=== PATIENT | male | born 1965 | race African-American/Black ===

== ENCOUNTER 2019-08-19 05:54 | Emergency (ER) | payer MEDICAID, SELFPAY ==
[2019-08-19 05:55] VITALS: BP 163/94; PULSE 86; RESP 16; TEMP 37.2; O2SAT 100; BMI 27.7
--- NOTE | 2019-08-19 06:55 | ED.VIS.DENTA ---
History of Present Illness Chief Complaint: Dental Informant: Patient Onset: Today Context: Gradual Onset Timing: Continuous Narrative: She is a 54-year-old male with history of intermittent dental pain presenting with worsening right lower dental pain. Patient states he has a broken tooth that started hurting him again yesterday. He states he feels that the tooth is loose. He previously was referred to the [facility] where he went but was told that they do not have an residential construction instructor and that they could not treat him there. Patient did not follow-up since then. Patient smokes intermittently. He denies any other complaints. He states he is having hard time chewing and eating. He denies any difficulty opening his mouth or swallowing. He denies any difficulty handling his secretions. Past Medical History - Allergies and Home Meds Allergies/Adverse Reactions: Allergies Penicillins Allergy (Verified 08/19/19 05:58) Rash Primary Care Physician: Damaso Woody [Primary Care Provider] - Past Medical History: - - Depression Surgical History: noncontributory Smoking Status: Current every day smoker Review of Systems General: Denies: Chills, Fever, Sweats Eyes: Denies: Visual changes - bilaterally, Diplopia ENT: Reports: - - Right lower dental pain. Denies: Rhinorrhea, Sore throat Cardiovascular: Denies: Chest pain, Palpitations Respiratory: Denies: Dyspnea, Cough, Dyspnea on exertion Gastrointestinal: Denies: Abdominal pain, Nausea, Vomiting Genitourinary: Denies: Dysuria, Hematuria, Frequency Skin: Denies: Rash, Wounds Neurological: Denies: Headache, Weakness, Numbness Physical Exam Vital Signs/Narrative: Vital Signs Temp Pulse Resp BP Pulse Ox 08/19/19 05:55 99 F 86 16 163/94 H 100 Inital Vital Signs reviewed: Yes General: Well nourished, Well developed Head: Normocephalic, Atraumatic ENT: Moist mucous membranes, No rhinorrhea, TM's clear Mouth/Throat: Normal inspection lips/gums, Normal oral mucosa, No focal abscess, Normal posterior oropharynx, Normal Stensen's duct, Dentral fracture - Broken tooth with a large section missing and only one shard sticking up that is loose on the right lower premolar, no surrounding abscess but associated tenderness to palpation, Filling loss, Widespread dental decay, - - Sublingual mucosa is soft. Negative for: Focal gum swelling, Trismus Neck: Supple, No lymphadenopathy, Nontender, No JVD Cardiovascular: Regular rate, Regular rhythm, No murmurs Respiratory: No distress, CTA bilaterally, Chest nontender Back: Nontender, Normal Inspection Extremities: Nontender, No edema Skin: Normal color, No rash Neurological: Alert, Oriented x3, Cranial nerves II-XII grossly intact, Normal Strength, Normal Sensation Psychological: Normal affect Diagnostic/Tx/Re-eval - Medical Decision Making Patient is evaluated for recurrent dental pain. He does have a broken tooth with very minimal tooth actually remaining that is loose to palpation. Do not think it is amenable to splinting or Cavit at this time. Patient drove here so he is not given any sedating medications in the ER. He is started on clindamycin and Motrin given first dose. Patient is offered a dental block but declines. He is requesting a short course of [place]. Chart review shows that he has previously gotten short courses of these for visit so he is given another prescription. Patient is counseled however that he needs to follow-up with dentist for definitive treatment. He is also counseled to stop smoking. Patient has no airway compromise and a stable for outpatient follow-up. He is given a dental clinic sheet. Patient is counseled on signs and symptoms requiring return to the emergency room. Patient verbalizes agreement and understand this plan. Patient discharged home in stable and improved condition. ED Disposition - Plan for ED Patient: Disposition: Home or Assisted Living Diagnosis: Dentalgia, Broken tooth Instructions: Dental Pain Prescriptions: Clindamycin [Cleocin] 450 mg PO TID 7 Days #63 cap Transmission Status: Pending to [facility] Ibuprofen [Motrin] 800 mg PO TID PRN PRN #20 tab PRN Reason: Pain Or Fever Transmission Status: Pending to [facility] Hydrocodone Bitart/Apap 5-325 [[place] 5MG-325MG] 1 tablet PO Q6H PRN PRN 3 Days #12 tablet PRN Reason: Pain Transmission Status: Sent to [facility] Referrals: Damaso Woody [Primary Care Provider] -
[2019-08-19] MEDS: Ibuprofen 600 MG Tablet PO (07:02)
[2019-08-19] MEDS: Clindamycin HCl 150 MG Capsule 300 MG PO (07:02)
== END 2019-08-19 07:08 | disposition home or self-care (01) ==
PROVIDERS: Emergency Provider Emergency Medicine; PCP Emergency Medicine
DX: S02.5XXA Fracture of tooth (traumatic), initial encounter for closed fracture (principal); X58.XXXA Exposure to other specified factors, initial encounter; Y93.9 Activity, unspecified; Y92.9 Unspecified place or not applicable; F32.9 Major depressive disorder, single episode, unspecified; F17.200 Nicotine dependence, unspecified, uncomplicated
CPT/HCPCS: 99283

== ENCOUNTER 2021-09-16 08:45 | Outpatient (REF) | payer SELFPAY ==
[2021-09-16 08:46] VITALS: BP 149/118; PULSE 111; RESP 20; TEMP 36.6; O2SAT 100; BMI 27.4
--- NOTE | 2021-09-16 09:03 | EKG12_ITS ---
Test Reason : SUICIDAL Blood Pressure : / mmHG Vent. Rate : 093 BPM Atrial Rate : 093 BPM P-R Int : 150 ms QRS Dur : 080 ms QT Int : 366 ms P-R-T Axes : 082 064 049 degrees QTc Int : 455 ms Normal sinus rhythm Nonspecific T wave abnormality Abnormal ECG Confirmed by WILLIAM LEE, ZORAN ([id number]), video news editor ЕКАТЕРИНА CHAU ([id number]) on 09/19/2021 11:09:46 A M Referred By: STEPHANIE Confirmed By:GIOVANI THOMAS MD
--- NOTE | 2021-09-16 09:31 | EDS_ITS ---
HPI History of Present Illness Chief Complaint: Suicidal Narrative Narrative: Patient is here for medical clearance. He has suicidal ideations, he has a history of drug use, he is in correction however he is feeling suicidal and he at some point will be transferred to [facility], he just needs medical clearance at this time he tells me he feels depressed he does not feel well but this has been chronic for over 2 years. He has no fever or chills he has no pain anywhere per se. He does admit to being depressed and suicidal [facility] Medical History (Updated 09/16/21 @ 10:[address] Jett Lao MD) Depression Diabetes Marijuana abuse Home Medications fluoxetine 40 mg PO DAILY 12/10/16 [History Last Taken 05/12/17] ibuprofen 800 mg PO TID PRN PRN #20 tab 08/19/19 [Rx Last Taken Unknown] fluoxetine 20 mg PO DAILY #30 cap 09/16/21 [Rx Last Taken Unknown] metformin 500 mg PO BID #60 tab 09/16/21 [Rx Last Taken Unknown] trazodone 50 mg PO QHS PRN 30 Days #14 tab 09/16/21 [Rx Last Taken Unknown] Allergy/AdvReac Type Severity Reaction Status Date / Time Penicillins Allergy Rash Verified 09/16/21 09:49 Social History Smoking Status: Current every day smoker tobacco type: cigarettes ROS ROS ED ROS Narrative Past medical history: Reviewed Medications: Reviewed Social history: Noncontributory Review of systems: All systems negative except as indicated General: No fever. He does not feel well which is chronic Eyes: No visual changes ENT: No upper airway congestion, normal voice Neck: No neck pain Cardiovascular: No chest pain Respiratory: No shortness of breath or cough Gastrointestinal: No abdominal pain, nausea vomiting or diarrhea Genitourinary: No dysuria Musculoskeletal: Denies myalgias no difficulty with ambulation Skin: No rash Neurological: No memory loss, confusion or any focal weakness Psych: As in HPI Hematologic: No easy bleeding or easy bruising EXAM Physical Exam Narrative Exam Narrative: Physical exam General: Well nourished, Well developed, No Acute Distress Head: Normocephalic, Atraumatic Eyes: Conjunctiva not pale ENT: Moist mucous membranes Neck: Supple, Nontender, No lymphadenopathy Cardiovascular: Slightly tachycardic. Regular. No murmur. Respiratory: No distress, CTA bilaterally Abdomen: Soft, Nontender, Nondistended Back: Nontender, Normal Inspection. Negative for: CVA tenderness Extremities: Nontender, No edema Skin: Normal color, No rash Neurological: Alert, Normal Strength, Normal Sensation Psychological: Normal affect Const Vital Signs: 09/16/21 08:46 Temperature 97.8 F Temperature Source Temporal Pulse Rate 111 H Respiratory Rate 20 H Blood Pressure 149/118 H Blood Pressure Mean 128 Pulse Ox 100 Oxygen Delivery Method Room Air MDM MDM MDM Narrative Medical decision making narrative: Patient has a normal work-up except for his hyperglycemia, however he has been off his Metformin for at least a month. I will refill his prescription as well as his chronic prescriptions otherwise he can be safely discharged back to correction they do have a suicide watch unit at correction and thus I feel comfortable with discharge in police custody. Lab Data Labs: Laboratory Results - last 24 hr 09/16/21 09/16/21 09/16/21 09:30 09:30 09:30 WBC 6.3 RBC 5.11 Hgb 17.2 H Hct 48.4 MCV 94.7 H MCH 33.7 H MCHC 35.5 RDW Std Deviation 53.1 H RDW Coeff of [place] 15.0 H Plt Count 280 MPV 10.3 Immature Gran % (Auto) 0.200 Neut % (Auto) 59.5 Lymph % (Auto) 26.4 [place] % (Auto) 8.5 Eos % (Auto) 4.8 Baso % (Auto) 0.6 Absolute Neuts (auto) 3.7 Absolute Lymphs (auto) 1.65 Nucleated RBC % 0 Sodium 134 L Potassium 3.8 Chloride 102 Carbon Dioxide 26.0 Anion Gap 6 BUN 17 Creatinine 1.32 H Estim Creat Clear Calc 70.22 Est GFR (MDRD) Af Amer 73 Est GFR (MDRD) Non-Af 60 BUN/Creatinine Ratio 12.9 Glucose 384 H Calcium 8.2 L Total Bilirubin 0.80 AST 13 L ALT 22 Alkaline Phosphatase 86 Total Protein 7.2 Albumin 3.4 Globulin 3.8 Albumin/Globulin Ratio 0.9 TSH 0.93 Urine Opiates Screen Urine Methadone Screen Ur Barbiturates Screen Ur Phencyclidine Scrn Ur Amphetamines Screen MDMA (Ecstasy) Screen U Benzodiazepines Scrn Urine Cocaine Screen U Cannabinoids Screen Ur Drug Screen Comment Ethyl Alcohol < 3.0 09/16/21 09:35 WBC RBC Hgb Hct MCV MCH MCHC RDW Std Deviation RDW Coeff of [place] Plt Count MPV Immature Gran % (Auto) Neut % (Auto) Lymph % (Auto) [place] % (Auto) Eos % (Auto) Baso % (Auto) Absolute Neuts (auto) Absolute Lymphs (auto) Nucleated RBC % Sodium Potassium Chloride Carbon Dioxide Anion Gap BUN Creatinine Estim Creat Clear Calc Est GFR (MDRD) Af Amer Est GFR (MDRD) Non-Af BUN/Creatinine Ratio Glucose Calcium Total Bilirubin AST ALT Alkaline Phosphatase Total Protein Albumin Globulin Albumin/Globulin Ratio TSH Urine Opiates Screen NEGATIVE Urine Methadone Screen NEGATIVE Ur Barbiturates Screen NEGATIVE Ur Phencyclidine Scrn NEGATIVE Ur Amphetamines Screen POSITIVE H MDMA (Ecstasy) Screen NEGATIVE U Benzodiazepines Scrn NEGATIVE Urine Cocaine Screen NEGATIVE U Cannabinoids Screen POSITIVE H Ur Drug Screen Comment Ethyl Alcohol Discharge Plan Triage Chief Complaint: Suicidal ED Provider: Jett Lao Dx/Rx/DC Orders Clinical Impression: Suicidal ideation, Acute hyperglycemia Instructions: ED Diabetic Hyperglycemia Prescriptions: New fluoxetine 20 mg capsule 20 mg PO DAILY Qty: 30 RF: 0 trazodone 50 mg tablet 50 mg PO QHS PRN (Reason: insomnia) 30 Days Qty: 14 RF: 0 metformin 500 mg tablet 500 mg PO BID Qty: 60 RF: 0 No Action fluoxetine 20 MG capsule 40 mg PO DAILY RF: 0 ibuprofen 800 MG tablet 800 mg PO TID PRN PRN (Reason: Pain Or Fever) Qty: 20 RF: 0 Primary Care Provider: Damaso Woody Referrals: Damaso Woody MD [Primary Care Provider] - 1-2 Days if not improving Disposition Disposition: Home, Self Care
[2021-09-16 09:44] LABS: Absolute Lymphocyte Count 1.65 X10^3/uL (0.83-4.51); Absolute Neutrophil Count 3.7 X10^3/uL (2.0-7.7); Basophil# 0.04 X10^3/uL; Basophil% 0.6 % (0-1); Eosinophils% 4.8 % (0-5); Hematocrit 48.4 % (40-54); Hemoglobin 17.2 g/dL (13.0-16.5); Lymphocyte # 1.65 X10^3/ul (0.83-4.51); Lymphocyte % 26.4 % (19-41); Mean Corp Hgb Conc 35.5 g/dL (32-36); Mean Corpuscular Hgb 33.7 pg (27.0-32.0); Mean Corpuscular Volume 94.7 fL (80-94); Mean Platelet Vol. 10.3 fl (6.2-12.0); Monocyte# 0.53 X10^3/uL; Monocyte% 8.5 % (0-10); NRBC Flagged by Analyzer 0 % (0-5); Neutrophil # 3.73 X10^3/uL (2.7-7.7); Neutrophil % 59.5 % (47-70); Platelet Count 280 K/mm3 (150-450); RBC Distribution Width SD 53.1 fl (35.1-43.9); Red Blood Count 5.11 M/mm3 (4.6-6.2); White Blood Count 6.3 K/mm3 (4.4-11.0)
[2021-09-16 09:56] LABS: Amphetamine Urine VISTA POSITIVE (<1000 ng/mL); Barbiturate Urine VISTA NEGATIVE (< 200 ng/mL); Benzodiazepine Urine VISTA NEGATIVE (< 200 ng/mL); Cocaine Urine VISTA NEGATIVE (< 300 ng/mL); Ecstacy Urine VISTA NEGATIVE (< 500 ng/mL); Methadone Urine VISTA NEGATIVE (< 300 ng/mL); PCP Urine VISTA NEGATIVE (< 25 ng/mL); THC Urine VISTA POSITIVE (< 50 ng/mL); Vista UDS pH Range 5
[2021-09-16 09:58] LABS: Alcohol, Blood (Medical)-Serum < 3.0 mg/dL
[2021-09-16 10:03] LABS: ALB/GLOB Ratio 0.9 RATIO (0.9-2.4); AST(SGOT) 13 U/L (15-37); Alanine Aminotransfer ALT/SGPT 22 U/L (16-61); Albumin, Serum 3.4 g/dL (3.2-5.0); Alkaline Phosphatase 86 U/L (45-117); Anion Gap 6 (5-15); BUN 17 mg/dL (7-18); BUN/Creat Ratio 12.9 RATIO (10-20); Calcium,Total 8.2 mg/dL (8.5-10.1); Chloride 102 mmol/L (98-107); Creatinine, Serum 1.32 mg/dL (0.70-1.30); EST Glomerular Filtration Rate 60 mL/min (>60); Est Glom Filt Rate - Afr Amer 73 mL/min (>60); Estimated Creatinine Clearance 70.22 ml/min; Globulin 3.8 g/dL (2.2-4.2); Glucose 384 mg/dL (74-106); Potassium 3.8 mmol/L (3.5-5.1); Protein, Total 7.2 g/dL (6.4-8.2); Sodium Level 134 mmol/L (136-145); Thyroid Stim Hormone (TSH) 0.93 uIU/mL (0.358-3.74)
[2021-09-16 10:52] VITALS: BP 134/98; PULSE 88; RESP 14; TEMP 36.9; O2SAT 98
[2021-09-16] MEDS: metFORMIN (XR) 500 MG Tablet PO (11:09)
--- NOTE | 2021-09-16 13:16 | CM.ED ---
Social Work Patient from Prison here for medical clearance and then returning to alf for placement to [facility] by local crisis team. Telephone call to crisis, Tere. Tere aware of patient and request for clinical information to be faxed. Clinical information faxed. PLAN: Return to Prison for placement to [facility]. Leno WEINSTEIN, DEVIS
== END 2021-09-16 23:59 ==
LOC: EDREF 08:45
PROVIDERS: PCP Emergency Medicine; Visit Provider Emergency Medicine
DX: R45.851 Suicidal ideations (principal); E11.65 Type 2 diabetes mellitus with hyperglycemia; F17.210 Nicotine dependence, cigarettes, uncomplicated; Z79.84 Long term (current) use of oral hypoglycemic drugs
CPT/HCPCS: 93005; 80053; 80307; 82077; 84443; 85025; 87811

== ENCOUNTER 2022-05-07 11:24 | Emergency (ER) | payer MEDICAID, SELFPAY ==
[2022-05-07 11:25] VITALS: BP 197/107; PULSE 106; RESP 18; TEMP 36.8; O2SAT 98; BMI 29.8
--- NOTE | 2022-05-07 12:10 | EDS_ITS ---
HPI History of Present Illness Chief Complaint: Anxiety Detail of Chief Complaint: Needs medications refilled Informant: patient Onset/Context/Timing Onset: Days Context: Gradual Onset Timing: Continuous Current Severity: Mild Maximum Severity: Mild Narrative Narrative: 56-year-old male recently incarcerated. Has been out of his medications for the last 3 days or so. Patient has a history of diabetes, depression and PTSD. He has not checked his blood sugars for a while. Denies any nausea, vomiting, diarrhea or fever. Denies any chest pain or shortness of breath or abdominal pain. He has no local primary care physician and will be referred to 1. Prior similar symptoms: Yes Recent Illness/Hospitalization: No PFSH PFS Medical History Depression Diabetes Marijuana abuse Home Medications fluoxetine 20 mg capsule 40 mg PO DAILY 12/10/16 [History Last Taken 05/12/17] ibuprofen 800 mg tablet 800 mg PO TID PRN PRN Pain Or Fever #20 tabs 08/19/19 [Rx Last Taken Unknown] fluoxetine 20 mg capsule 20 mg PO DAILY #30 caps 09/16/21 [Rx Last Taken Unknown] metformin 500 mg tablet 500 mg PO BID #60 tabs 09/16/21 [Rx Last Taken Unknown] trazodone 50 mg tablet 50 mg PO QHS PRN insomnia 30 days #14 tabs 09/16/21 [Rx Last Taken Unknown] fluoxetine 40 mg capsule (Prozac) 40 mg PO DAILY 30 days #30 caps 05/07/22 [Rx Last Taken Unknown] metformin 500 mg tablet 500 mg PO BID 30 days #60 tabs 05/07/22 [Rx Last Taken Unknown] venlafaxine 150 mg capsule,extended release 24 hr (Effexor XR) 150 mg PO DAILY 05/07/22 [History Last Taken Unknown] Allergy/AdvReac Type Severity Reaction Status Date / Time Penicillins Allergy Rash Verified 05/07/22 11:27 Social History Smoking Status: Current every day smoker tobacco type: cigarettes ROS ROS ED ROS Narrative Denies recent illness. Review of Systems ROS Unobtainable: Denies due to encephalopathy Constitutional Constitutional ED: Denies chills or fever(s) Eyes Eyes: Denies blurry vision ENT ENT ED: Denies ear pain Cardiovascular Cardiovascular: Denies chest pain Respiratory/Chest Respiratory/Chest: Denies cough or dyspnea Gastrointestinal Gastrointestinal: Denies abdominal pain Genitourinary Genitourinary ED: Denies dysuria or hematuria Musculoskeletal Musculoskeletal: Denies arthralgias Integumentary Denies abscess Neurologic Neurologic: Denies headache(s) Psychiatric Psychiatric: Denies anxiety or depression Endocrine Endocrinology: Denies cold intolerance Hematologic/Lymphatic Hematologic/Lymphatic: Reports none Allergic/Immunologic Allergic/Immunologic ED: Denies mouth swelling or tongue swelling EXAM Physical Exam Narrative Exam Narrative: Well-appearing 56-year-old male. Vital signs stable blood pressure is elevated 197/107. H EENT exam unremarkable. Neck nontender. Lungs clear to auscultation bilaterally. Heart regular rhythm rate about 100 no murmur. Abdomen soft nontender. Moving all 4 extremities. Calves are nontender without edema or cords. Normal motor strength both upper and lower extremities. Neurologic exam awake and alert no focal motor deficits. Patient clinically looks well. He does not look septic or toxic. Const Vital Signs: 05/07/22 11:25 Temperature 98.3 F Temperature Source Temporal Pulse Rate 106 H Respiratory Rate 18 Blood Pressure 197/107 H Blood Pressure Mean 137 Pulse Ox 98 Oxygen Delivery Method Room Air Positive well nourished and well developed; Negative for obese, cachectic, contractures or unkempt General Appearance ED: well developed and NAD; Negative for unkempt, cachectic, contractures, cyanotic or diaphoretic Nutritional Appearance: Negative for cachectic or obese HEENT Reports moist mucous membranes; Denies dry mucous membranes Negative for trauma or tenderness Mouth ED: No dry mucous membranes Mouth: No dry mucous membranes Eyes PERRL and EOMs intact bilaterally General Eye ED: Negative for pale conjunctiva or scleral icterus Neck no lymphadenopathy, supple and no JVD General: Negative for tenderness Lymph Lymphatic: Negative for other Chest Wall inspection of chest normal and palpation of chest normal Chest: Negative for other Resp normal respiratory effort and clear to auscultation bilaterally Effort and Inspection: Negative for retractions Auscultation: Negative for rales, rhonchi or wheezes Cardio regular rate, regular rhythm, S1 normal heart sound, S2 normal heart sound and no murmurs Palpation: Negative for palpable S3 Rate: Negative for bradycardia Rhythm: Negative for abnormal rhythm GI normal to inspection, nondistended, normoactive bowel sounds, non-tender, non- distended and no masses Inspection: Negative for abdominal distention Auscultation: normoactive bowel sounds Palpation: soft; Negative for tender or guarding Back/Spine no CVA tenderness General Back: Negative for CVA tenderness Cervical Spine: Negative for cervical spine tenderness Thoracic Spine / Upper Back: Negative for thoracic spinal tenderness Lumbar Spine / Lower Back: Negative for lumbar spinal tenderness Extremity normal to inspection General Extremety ED: Negative for edema or tenderness General Extremity: Negative for edema Neuro oriented x3 and CN's II-XII intact bilaterally Sensorium / Orientation: alert; Negative for orientation impaired, lethargic or stuporous Motor Exam: strength 5/5 throughout; Negative for general weakness Psych mental status grossly normal Appearance: Negative for unkempt Attitude: No agitated Mood & Affect: Negative for depressed, anxious or tearful Skin no rashes or lesions noted and no wounds General Skin Exam: elasticity normal Lesions: No lesion noted Rashes: No rashes noted Trauma: Negative for abrasion Wounds: Negative for wounds noted MDM MDM MDM Narrative Medical decision making narrative: 56-year-old diabetic male needs medications refilled. I did have his blood sugar checked is 390. He will be given a dose of metformin here 1000 mg. Placed on metformin 500 twice daily for 1 month. Refill his prescription for Prozac 40 mg/day. And referred to [facility]. Discharge Plan Triage Chief Complaint: Anxiety ED Provider: [facility] Dx/Rx/DC Orders Clinical Impression: Hyperglycemia due to diabetes mellitus, Refill clinic medication management patient, History of depression Instructions: Facts About Diabetes Prescriptions: New metformin 500 mg tablet 500 mg PO BID 30 Days Qty: 60 0RF fluoxetine [Prozac] 40 mg capsule 40 mg PO DAILY 30 Days Qty: 30 0RF No Action fluoxetine 20 MG capsule 40 mg PO DAILY ibuprofen 800 MG tablet 800 mg PO TID PRN PRN (Reason: Pain Or Fever) Qty: 20 0RF fluoxetine 20 mg capsule 20 mg PO DAILY Qty: 30 0RF trazodone 50 mg tablet 50 mg PO QHS PRN (Reason: insomnia) 30 Days Qty: 14 0RF metformin 500 mg tablet 500 mg PO BID Qty: 60 0RF venlafaxine [Effexor XR] 150 mg Capsule,Extended Release 24hr 150 mg PO DAILY Primary Care Provider: Care Physician,No Primary Referrals: Bassam Reardon MD [Med Staff - [employer]] - As soon as possible Anne Marie Nelson [Non-Staff] - As soon as possible Care Physician,No Primary [Primary Care Provider] - Activity Restrictions/Additional Instructions: Make sure you are checking your blood sugars it was 390 today. I wrote your prescription for metformin and Prozac. Call and follow-up with a local primary care physician. When you follow-up make sure they recheck your blood pressure was elevated today. Disposition Disposition: Home, Self Care
[2022-05-07 12:31] LABS: Bedside Glucose 390 mg/dL (74-106)
[2022-05-07] MEDS: metFORMIN HCl 1,000 MG Tablet 1000 MG PO (12:34)
[2022-05-07 12:36] VITALS: BP 174/105; PULSE 86; RESP 15; O2SAT 100
== END 2022-05-07 12:37 | disposition home or self-care (01) ==
PROVIDERS: Emergency Provider Emergency Medicine; Visit Provider Emergency Medicine
DX: E11.65 Type 2 diabetes mellitus with hyperglycemia (principal); F17.210 Nicotine dependence, cigarettes, uncomplicated; F41.9 Anxiety disorder, unspecified; F43.10 Post-traumatic stress disorder, unspecified; F32.A Depression, unspecified; Z91.198 Patient's noncompliance with other medical treatment and regimen for other reason
CPT/HCPCS: 82962; 99283

== ENCOUNTER 2022-07-30 17:57 | Emergency (ER) | payer MEDICAID, SELFPAY ==
[2022-07-30 17:58] VITALS: BP 141/91; PULSE 99; RESP 16; TEMP 36.8; O2SAT 97; BMI 29.5
--- NOTE | 2022-07-30 18:42 | ED.VIS.DENTA ---
HPI History of Present Illness Chief Complaint: Dental Informant: patient Onset/Context/Timing Onset: Days (couple) Context: Gradual Onset Timing: Continuous Quality: throbbing Location: R mandibular cuspid Current Severity: Moderate Maximum Severity: Moderate Worsened by: eating, palpation Relieved by: - (hasn't tried anything) Associated Symptoms Assocated Symptom - Dental: jaw swelling; Negative for fever Narrative Narrative: Couple days of pain in the right mandibular canine/cuspid, he has had some mild swelling in his jaw in this area as well. Hurts to eat. No fevers or chills. No bleeding or discharge from his mouth. Able to swallow. He states the tooth that cracked was the left maxillary molar, it is not hurting. [facility] Medical History Depression Diabetes Marijuana abuse Home Medications fluoxetine 20 mg capsule 40 mg PO DAILY 12/10/16 [History Last Taken 05/12/17] ibuprofen 800 mg tablet 800 mg PO TID PRN PRN Pain Or Fever #20 tabs 08/19/19 [Rx Last Taken Unknown] fluoxetine 20 mg capsule 20 mg PO DAILY #30 caps 09/16/21 [Rx Last Taken Unknown] metformin 500 mg tablet 500 mg PO BID #60 tabs 09/16/21 [Rx Last Taken Unknown] trazodone 50 mg tablet 50 mg PO QHS PRN insomnia 30 days #14 tabs 09/16/21 [Rx Last Taken Unknown] fluoxetine 40 mg capsule (Prozac) 40 mg PO DAILY 30 days #30 caps 05/07/22 [Rx Last Taken Unknown] metformin 500 mg tablet 500 mg PO BID 30 days #60 tabs 05/07/22 [Rx Last Taken Unknown] venlafaxine 150 mg capsule,extended release 24 hr (Effexor XR) 150 mg PO DAILY 05/07/22 [History Last Taken Unknown] clindamycin HCl 150 mg capsule 300 mg PO 4X/DAY #80 CAPSULES 07/30/22 [Rx Last Taken Unknown] ibuprofen 600 mg tablet 600 mg PO Q8H PRN PRN pain #20 TABLETS 07/30/22 [Rx Last Taken Unknown] Allergy/AdvReac Type Severity Reaction Status Date / Time Penicillins Allergy Rash Verified 05/07/22 11:27 Social History Smoking Status: Current every day smoker tobacco type: cigarettes ROS ROS ED Constitutional Constitutional ED: Denies chills or fever(s) Eyes Eyes: Denies change in vision or double vision ENT ENT ED: Reports dental pain; Denies sinus pain or throat swelling Cardiovascular Cardiovascular: Denies chest pain or palpitations Respiratory/Chest Respiratory/Chest: Denies cough or dyspnea Integumentary Denies abscess or rash Neurologic Neurologic: Denies headache(s), paresthesias or weakness EXAM Physical Exam Const Vital Signs: 07/30/22 17:58 Temperature 98.2 F Temperature Source Temporal Pulse Rate 99 Respiratory Rate 16 Blood Pressure 141/91 H Blood Pressure Mean 107 Pulse Ox 97 Oxygen Delivery Method Room Air Positive well nourished and well developed General Appearance ED: well developed and NAD HEENT HEENT Narrative: Normal voice no stridor. No trismus. Several severely decayed teeth, the one that is tender appears to have some plaque but does not appear obviously decayed, there is no evidence of gingivitis or bleeding or any soft tissue abscess around this tooth which is #26 Face and Sinus: sinuses nontender Throat: posterior oropharynx normal Eyes PERRL and EOMs intact bilaterally Neck no lymphadenopathy and supple Resp normal respiratory effort Neuro oriented x3 and CN's II-XII intact bilaterally Sensorium / Orientation: alert Gait (Neuro): normal gait Psych mental status grossly normal and thought process normal Skin no rashes or lesions noted and no wounds MDM MDM MDM Narrative Medical decision making narrative: Patient has an allergy to amoxicillin. Does not have any type of drainable collections here but since he has had some mild swelling which I cannot appreciate objectively, we will place him on antibiotics. He has a dentist to follow-up with. Offered ibuprofen as well which he is amenable to. Discharge Plan Triage Chief Complaint: Dental ED Provider: Vitaly Martínez Dx/Rx/DC Orders Clinical Impression: Odontalgia, Dental decay Instructions: ED Dental Pain Prescriptions: New clindamycin HCl 150 mg capsule 300 mg PO 4X/DAY Qty: 80 0RF ibuprofen 600 mg tablet 600 mg PO Q8H PRN PRN (Reason: pain) Qty: 20 0RF No Action fluoxetine 20 MG capsule 40 mg PO DAILY ibuprofen 800 MG tablet 800 mg PO TID PRN PRN (Reason: Pain Or Fever) Qty: 20 0RF fluoxetine 20 mg capsule 20 mg PO DAILY Qty: 30 0RF trazodone 50 mg tablet 50 mg PO QHS PRN (Reason: insomnia) 30 Days Qty: 14 0RF metformin 500 mg tablet 500 mg PO BID Qty: 60 0RF venlafaxine [Effexor XR] 150 mg Capsule,Extended Release 24hr 150 mg PO DAILY metformin 500 mg tablet 500 mg PO BID 30 Days Qty: 60 0RF fluoxetine [Prozac] 40 mg capsule 40 mg PO DAILY 30 Days Qty: 30 0RF Primary Care Provider: Anne Marie Nelson Referrals: Anne Marie Nelson [Primary Care Provider] - Dentist,Your [STAFF PHYSICIAN] - As soon as possible Disposition Disposition: Home, Self Care
[2022-07-30] MEDS: Ibuprofen 600 MG Tablet PO (18:46)
[2022-07-30] MEDS: Clindamycin HCl 150 MG Capsule 300 MG PO (18:46)
== END 2022-07-30 18:50 | disposition home or self-care (01) ==
PROVIDERS: Emergency Provider Emergency Medicine; Visit Provider Emergency Medicine
DX: K08.89 Other specified disorders of teeth and supporting structures (principal); K02.9 Dental caries, unspecified; F17.210 Nicotine dependence, cigarettes, uncomplicated
CPT/HCPCS: 99283

== ENCOUNTER 2023-01-12 11:05 | Emergency (ER) | payer MEDICAID, SELFPAY ==
[2023-01-12 11:06] VITALS: BP 143/92; PULSE 97; RESP 14; TEMP 36.6; O2SAT 98; BMI 29.8
--- NOTE | 2023-01-12 11:36 | CT_ITS ---
STUDY: CT ABDOMEN AND PELVIS WITH CONTRAST REASON FOR EXAM: Male, 57 years old. Left-sided abdominal pain with nausea and vomiting. RADIATION DOSAGE (If Supplied By Facility): CTDIvol = ( 15.87 ) mGy, DLP = ( 1033.81 ) mGycm TECHNIQUE: Transaxial images were obtained from the dome of the diaphragm to the symphysis pubis without oral contrast. IV 100mL Isovue-370 was administered. Sagittal and coronal images were reconstructed. Individualized dose optimization techniques were used for this CT. COMPARISON: None. FINDINGS: The visualized lung bases are unremarkable. The visualized portions of the heart are within normal limits. There is decreased attenuation of the liver consistent with steatosis. Normal gallbladder and extrahepatic biliary system. Normal spleen. Mildly dilated pancreatic duct down to the ampulla of Vater. Questionable abnormality at the ampulla of Vater.. Normal bilateral adrenal glands. Normal right kidney. Normal left kidney. Normal visualized stomach. Normal small intestine. There are multiple colonic diverticula consistent with diverticulosis. The appendix is visualized and appears normal. There is scattered atherosclerotic calcification of the abdominal aorta, without a demonstrated aneurysm. Normal inferior vena cava. Normal retroperitoneum. Mild degree of diffuse bladder wall thickening although the bladder is not completely distended at this time. There is a small umbilical hernia containing fat. Normal osseous structures. CT/Abdomen/Pelvis W IV Cont ONLY IMPRESSION: Mildly dilated pancreatic duct down to the ampulla bladder. Questionable abnormality at the ampulla Vater. Bladder wall thickening although the bladder is not completely distended at this time. Scattered sigmoid diverticula. Electronically Signed: Oscar Fischer MD at 12:58 EDT ,
--- NOTE | 2023-01-12 11:37 | ED.VIS.GI ---
HPI HPI - GI History of Present Illness Chief Complaint: Abd Pain Narrative Narrative: 57-year-old male presenting with 24 hours of left-sided abdominal pain. He describes as left upper and left lower quadrant. He had a bowel movement but he has not any diarrhea. No urinary complaints. No fevers. Patient very tearful and states that his stomach hurts severely. He states he had something like this in the past but usually will go away on its own. This has been persistent. He has not had a fever. Nobody else in the household is sick. No history of abdominal surgeries. Patient also states has not been able to hold nothing down due to nausea and vomiting [facility] Medical History Depression Diabetes Marijuana abuse Home Medications fluoxetine 20 mg capsule 40 mg PO DAILY 12/10/16 [History Last Taken 05/12/17] ibuprofen 800 mg tablet 800 mg PO TID PRN PRN Pain Or Fever #20 tabs 08/19/19 [Rx Last Taken Unknown] fluoxetine 20 mg capsule 20 mg PO DAILY #30 caps 09/16/21 [Rx Last Taken Unknown] metformin 500 mg tablet 500 mg PO BID #60 tabs 09/16/21 [Rx Last Taken Unknown] trazodone 50 mg tablet 50 mg PO QHS PRN insomnia 30 days #14 tabs 09/16/21 [Rx Last Taken Unknown] fluoxetine 40 mg capsule (Prozac) 40 mg PO DAILY 30 days #30 caps 05/07/22 [Rx Last Taken Unknown] metformin 500 mg tablet 500 mg PO BID 30 days #60 tabs 05/07/22 [Rx Last Taken Unknown] venlafaxine 150 mg capsule,extended release 24 hr (Effexor XR) 150 mg PO DAILY 05/07/22 [History Last Taken Unknown] clindamycin HCl 150 mg capsule 300 mg (2 x 150 mg) PO 4X/DAY #80 CAPSULES 07/30/22 [Rx Last Taken Unknown] ibuprofen 600 mg tablet 600 mg PO Q8H PRN PRN pain #20 TABLETS 07/30/22 [Rx Last Taken Unknown] buspirone 10 mg tablet 10 mg PO BID 01/12/23 [History Last Taken Unknown] losartan 25 mg tablet 25 mg PO DAILY 01/12/23 [History Last Taken Unknown] metformin 1,000 mg tablet mg 01/12/23 [History Last Taken Unknown] Allergy/AdvReac Type Severity Reaction Status Date / Time Penicillins Allergy Rash Verified 01/12/23 11:06 Social History Smoking Status: Current every day smoker tobacco type: cigarettes ROS ROS ED Review of Systems ROS Unobtainable: due to encephalopathy Constitutional Constitutional ED: Denies chills or fever(s) ENT ENT ED: Denies rhinorrhea Cardiovascular Cardiovascular: Denies chest pain or palpitations Respiratory/Chest Respiratory/Chest: Denies cough or dyspnea Gastrointestinal Gastrointestinal: Reports abdominal pain, nausea and vomiting Genitourinary Genitourinary ED: Denies dysuria or hematuria Musculoskeletal Musculoskeletal: Denies arthralgias or back pain Integumentary Denies abscess or Abrasions Neurologic Neurologic: Denies headache(s) or paresthesias Psychiatric Psychiatric: Denies anxiety or depression Endocrine Endocrinology: Denies polydipsia or polyphagia EXAM Physical Exam Const Vital Signs: 01/12/23 11:06 01/12/23 15:05 Temperature 97.8 F Temperature Source Temporal Pulse Rate 97 87 Respiratory Rate 14 14 Blood Pressure 143/92 H 144/76 H Blood Pressure Mean 109 98 Pulse Ox 98 98 Oxygen Delivery Method Room Air Positive well nourished General Appearance ED: NAD; Negative for pallor HEENT Reports moist mucous membranes normocephalic and atraumatic Eyes PERRL and EOMs intact bilaterally Resp normal respiratory effort Cardio regular rate and regular rhythm GI Palpation: tender LLQ and LUQ Back/Spine no CVA tenderness Neuro CN's II-XII intact bilaterally Sensorium / Orientation: alert Psych mental status grossly normal Skin General Skin Exam: Negative for jaundice or pallor MDM MDM MDM Narrative Medical decision making narrative: Patient presenting with left-sided abdominal pain. It is upper and lower. He had a bowel movement and does not believe he is constipated. No fever or chills. Differential includes but not limited to gastritis, pancreatitis, colitis, diverticulitis, urinary tract infection, kidney stones, dehydration, electrolyte abnormalities. CBC will be obtained to assess white blood cell count, hemoglobin, platelets. CMP to assess liver function, renal function, electrolytes. Lipase to assess for pancreatitis. Will obtain CT of the abdomen pelvis with IV contrast. Patient medicated with morphine, Zofran, normal saline. CBC shows no leukocytosis. Hemoglobin macular stable. Platelets are normal. LFTs are unremarkable and lipase is negative. Glucose elevated at [address] of the abdomen pelvis with IV contrast shows a dilated pancreatic duct. This extends into the ampulla of Vater. There is some kind of defect at the ampulla as well. Discussed with general surgery Dr. Dixon who recommended I speak to GI. I was able to speak to Dr. Acosta and he stated that the patient needed a endoscopic ultrasound to make this diagnosis and he does not have that here. He recommended transfer. I spoke with [facility] transfer line and the patient was accepted. Pain has been well controlled. Patient requested a nicotine patch and this was provided. Patient will be transported to [facility]. Impression: 1. dilated pancreatic duct 2. Abdominal pain 3. Nausea/vomiting 4. Dehydration 5. Hyperglycemia Lab Data Labs: Laboratory Results - last 24 hr 01/12/23 01/12/23 11:29 12:21 WBC 7.0 RBC 4.52 L Hgb 14.7 Hct 43.8 MCV 96.9 H MCH 32.5 H MCHC 33.6 RDW Std Deviation 48.7 H RDW Coeff of [place] 13.6 Plt Count 322 MPV 10.5 Immature Gran % (Auto) 0.300 Neut % (Auto) 60.9 Lymph % (Auto) 28.0 [place] % (Auto) 8.4 Eos % (Auto) 1.7 Baso % (Auto) 0.7 Absolute Neuts (auto) 4.3 Absolute Lymphs (auto) 1.96 Nucleated RBC % 0 Sodium 137 Potassium 3.7 Chloride 99 Carbon Dioxide 31.0 Anion Gap 7 BUN 15 Creatinine 1.40 H Estim Creat Clear Calc 65.44 Est GFR (MDRD) Af Amer 68 Est GFR (MDRD) Non-Af 56 L BUN/Creatinine Ratio 10.7 Glucose 204 H Calcium 9.4 Total Bilirubin 0.80 AST 16 ALT 22 Alkaline Phosphatase 65 Total Protein 7.6 Albumin 3.7 Globulin 3.9 Albumin/Globulin Ratio 0.9 Lipase 75 Urine Color Yellow Urine Clarity Sl. Cloudy Urine pH 8.0 Ur Specific [place] 1.010 Urine Protein 30 H Urine Glucose (UA) Normal Urine Ketones Negative Urine Occult Blood Negative Urine Nitrite Negative Urine Bilirubin Negative Urine Urobilinogen Normal Ur Leukocyte Esterase 25 H Urine RBC 0 SEEN Urine WBC 0 SEEN Ur Squamous Epith Cells 0 SEEN Amorphous Sediment 1+ Urine Bacteria 0 SEEN Urine Mucus 0 SEEN Radiography Diagnostic Testing: Clinical Impression(s) from Imaging Studies Abdomen/Pelvis CT 01/12/23 11:36 IMPRESSION: Mildly dilated pancreatic duct down to the ampulla bladder. Questionable abnormality at the ampulla Vater. Bladder wall thickening although the bladder is not completely distended at this time. Scattered sigmoid diverticula. Electronically Signed: Oscar Fischer MD at 12:58 EDT , Discharge Plan Triage Chief Complaint: Abd Pain ED Provider: Jona Mckeon Dx/Rx/DC Orders Prescriptions: No Action fluoxetine 20 MG capsule 40 mg PO DAILY ibuprofen 800 MG tablet 800 mg PO TID PRN PRN (Reason: Pain Or Fever) Qty: 20 0RF fluoxetine 20 mg capsule 20 mg PO DAILY Qty: 30 0RF trazodone 50 mg tablet 50 mg PO QHS PRN (Reason: insomnia) 30 Days Qty: 14 0RF metformin 500 mg tablet 500 mg PO BID Qty: 60 0RF venlafaxine [Effexor XR] 150 mg Capsule,Extended Release 24hr 150 mg PO DAILY metformin 500 mg tablet 500 mg PO BID 30 Days Qty: 60 0RF fluoxetine [Prozac] 40 mg capsule 40 mg PO DAILY 30 Days Qty: 30 0RF clindamycin HCl 150 mg capsule 300 mg PO 4X/DAY Qty: 80 0RF ibuprofen 600 mg tablet 600 mg PO Q8H PRN PRN (Reason: pain) Qty: 20 0RF metformin 1,000 mg tablet Patient Comments: TAKE 1 TABLET BY MOUTH TWICE DAILY losartan 25 mg tablet 25 mg PO DAILY Patient Comments: TAKE 1 TABLET BY MOUTH EVERY DAY buspirone 10 mg tablet 10 mg PO BID Patient Comments: take one tablet by mouth twice a day for anxiety Primary Care Provider: Anne Marie Nelson Referrals: Anne Marie Nelson [Primary Care Provider] -
[2023-01-12 11:53] LABS: Absolute Lymphocyte Count 1.96 X10^3/uL (0.83-4.51); Absolute Neutrophil Count 4.3 X10^3/uL (2.0-7.7); Basophil# 0.05 X10^3/uL; Basophil% 0.7 % (0-1); Eosinophil# 0.12 X10^3/uL; Eosinophils% 1.7 % (0-5); Hematocrit 43.8 % (40-54); Hemoglobin 14.7 g/dL (13.0-16.5); Lymphocyte # 1.96 X10^3/ul (0.83-4.51); Mean Corp Hgb Conc 33.6 g/dL (32-36); Mean Corpuscular Hgb 32.5 pg (27.0-32.0); Mean Corpuscular Volume 96.9 fL (80-94); Mean Platelet Vol. 10.5 fl (6.2-12.0); Monocyte# 0.59 X10^3/uL; Monocyte% 8.4 % (0-10); NRBC Flagged by Analyzer 0 % (0-5); Neutrophil # 4.26 X10^3/uL (2.7-7.7); Neutrophil % 60.9 % (47-70); Platelet Count 322 K/mm3 (150-450); RBC Distribution Width CV 13.6 % (11.6-14.6); RBC Distribution Width SD 48.7 fl (35.1-43.9); Red Blood Count 4.52 M/mm3 (4.6-6.2)
[2023-01-12] MEDS: Morphine 4 MG/ML Syringe IV (11:53)
[2023-01-12] MEDS: Ondansetron 4 MG/2 ML Vial IV (11:53)
[2023-01-12] MEDS: 0.9% Normal Saline 1,000 ML 1000 ML IV (11:54)
[2023-01-12 12:08] LABS: ALB/GLOB Ratio 0.9 RATIO (0.9-2.4); AST(SGOT) 16 U/L (15-37); Alanine Aminotransfer ALT/SGPT 22 U/L (16-61); Albumin, Serum 3.7 g/dL (3.2-5.0); Alkaline Phosphatase 65 U/L (45-117); Anion Gap 7 (5-15); BUN 15 mg/dL (7-18); BUN/Creat Ratio 10.7 RATIO (10-20); Calcium,Total 9.4 mg/dL (8.5-10.1); Chloride 99 mmol/L (98-107); EST Glomerular Filtration Rate 56 mL/min (>60); Est Glom Filt Rate - Afr Amer 68 mL/min (>60); Estimated Creatinine Clearance 65.44 ml/min; Globulin 3.9 g/dL (2.2-4.2); Glucose 204 mg/dL (74-106); Lipase 75 U/L (13-75); Potassium 3.7 mmol/L (3.5-5.1); Protein, Total 7.6 g/dL (6.4-8.2); Sodium Level 137 mmol/L (136-145)
[2023-01-12 12:30] LABS: Bacteria 0 SEEN /hpf (None Seen); Mucous, Urine 0 SEEN /hpf (<or=2+); Red Blood Cells-Urine 0 SEEN /hpf (0-5); Squamous Epithelial Cells - UA 0 SEEN /hpf (0-5); White Blood Cells 0 SEEN /hpf (0-5)
[2023-01-12 12:34] LABS: Color, Urine Yellow (Yellow); Glucose, Dipstick Normal (Normal); Ketone-Dipstick Negative (Negative); Leukocyte Esterase-Dipstick 25 /ul (Negative); Nitrite-Dipstick Negative (Negative); Occult Blood-Urine Negative /ul (Negative); Protein-Dipstick 30 mg/dl (Negative); Urine Bilirubin Dipstick Negative (Negative); Urine Clarity Sl. Cloudy (Clear); Urine Urobilinogen Normal (Normal)
[2023-01-12 13:04] LABS: Amorphous Sediment 1+
--- NOTE | 2023-01-12 13:54 | NURSING ---
1348 CALLED [facility], NOT TAKING PATIENT
--- NOTE | 2023-01-12 13:55 | NURSING ---
1350 CALLED [facility] TALKING TO AMELIA
--- NOTE | 2023-01-12 13:55 | NURSING ---
FAXED FACESHEET TO [facility]
--- NOTE | 2023-01-12 14:57 | NURSING ---
[facility] 5201 BED 1 NURSE TO NURSE [phone] RUT[place]ORD
--- NOTE | 2023-01-12 15:00 | NURSING ---
CALLED [facility], ETA IS 2 HRS
[2023-01-12 15:05] VITALS: BP 144/76; PULSE 87; RESP 14; O2SAT 98
[2023-01-12 19:00] VITALS: BP 149/81; PULSE 79; RESP 14; O2SAT 97
[2023-01-12 19:21] VITALS: BP 149/81; PULSE 79; RESP 14; O2SAT 97
== END 2023-01-12 19:24 | disposition short-term general hospital (02) ==
LOC: ED 12:09
PROVIDERS: Emergency Provider Student in an Organized Health Care Education/Training Program; Visit Provider Student in an Organized Health Care Education/Training Program
DX: K86.89 Other specified diseases of pancreas (principal); E11.65 Type 2 diabetes mellitus with hyperglycemia; R10.9 Unspecified abdominal pain; R11.2 Nausea with vomiting, unspecified; F17.210 Nicotine dependence, cigarettes, uncomplicated; F32.A Depression, unspecified; E86.0 Dehydration; Z79.899 Other long term (current) drug therapy; Z79.84 Long term (current) use of oral hypoglycemic drugs
CPT/HCPCS: 74177; 80053; 81001; 83690; 85025; 96361; 96374; 96375; 99283; J7030; Q9967; A4216; J2405

== ENCOUNTER 2024-08-03 09:42 | Inpatient (IN) | payer MEDICAID, SELFPAY ==
[2024-08-03] VITALS (10 sets, daily range): BP systolic 137–159; BP diastolic 61–129; PULSE 62–116; RESP 16–22; TEMP 36.2–37.2; O2SAT 98–100; BMI 29.5; BMI 28.6
[2024-08-03 10:22] LABS: Absolute Lymphocyte Count 2.92 X10^3/uL (0.83-4.51); Absolute Neutrophil Count 4.3 X10^3/uL (2.0-7.7); Basophil# 0.05 X10^3/uL; Basophil% 0.6 % (0-1); Eosinophil# 0.07 X10^3/uL; Eosinophils% 0.9 % (0-5); Hematocrit 42.8 % (40-54); Hemoglobin 14.4 g/dL (13.0-16.5); Lymphocyte # 2.92 X10^3/ul (0.83-4.51); Mean Corp Hgb Conc 33.6 g/dL (32-36); Mean Corpuscular Hgb 30.8 pg (27.0-32.0); Mean Corpuscular Volume 91.6 fL (80-94); Mean Platelet Vol. 11.6 fl (6.2-12.0); Monocyte% 6.3 % (0-10); NRBC Flagged by Analyzer 0 % (0-5); Neutrophil # 4.33 X10^3/uL (2.7-7.7); Neutrophil % 54.9 % (47-70); Platelet Count 253 K/mm3 (150-450); RBC Distribution Width CV 12.4 % (11.6-14.6); Red Blood Count 4.67 M/mm3 (4.6-6.2); White Blood Count 7.9 K/mm3 (4.4-11.0)
--- NOTE | 2024-08-03 10:26 | EX.ED.SAOD ---
HPI History of Present Illness Chief Complaint: Substance Abuse Informant: patient Onset/Context/Timing Onset: Today Context: Gradual Onset Timing: Continuous Worsened by: Nothing Relieved by: Nothing Associated Symptoms Associated Symptoms: Positive for vomiting* and palpatations; Negative for diarrhea*, fever*, rash*, seizure, tremor or change in mental status Narrative Narrative: Patient presents requesting detox from alcohol. Patient states his last drink was approximately 1 hour prior to arrival. Patient states he drinks several beers per day. Patient states he also drinks hard liquor including vodka and whiskey. Patient admits to some nausea and vomiting. Patient also admits to some palpitations. Patient denies any seizures or tremors. Patient states he has a history of depression which is getting worse. Patient denies any suicidal homicidal ideations. Patient denies any fevers or chills. Patient states he has never been to detox before. [facility] Medical History (Updated 08/03/24 @ 11:[address] Zach Dyer, DO) CKD (chronic kidney disease) stage 2, GFR 60-89 ml/min Suicidal ideation Marijuana abuse Depression Diabetes Home Medications ?Medication ?Instructions ?Recorded ?Last Taken ?Type fluoxetine 20 mg capsule 40 mg PO DAILY 12/10/16 05/12/17 History ibuprofen 800 mg tablet 800 mg PO TID PRN PRN Pain Or 08/19/19 Unknown Rx Fever #20 tabs fluoxetine 20 mg capsule 20 mg PO DAILY #30 caps 09/16/21 Unknown Rx trazodone 50 mg tablet 50 mg PO QHS PRN insomnia 30 days 09/16/21 Unknown Rx #14 tabs fluoxetine 40 mg capsule (Prozac) 40 mg PO DAILY 30 days #30 caps 05/07/22 Unknown Rx venlafaxine 150 mg 150 mg PO DAILY 05/07/22 Unknown History capsule,extended release 24 hr (Effexor XR) Held on 08/03/24. Instructions: castillo ibuprofen 600 mg tablet 600 mg PO Q8H PRN PRN pain #20 07/30/22 Unknown Rx TABLETS buspirone 10 mg tablet 10 mg PO BID 01/12/23 Unknown History losartan 25 mg tablet 25 mg PO DAILY 01/12/23 Unknown History metformin 1,000 mg tablet 1,000 mg PO 01/12/23 Unknown History dulaglutide 3 mg/0.5 mL mg subcut .weekly 08/03/24 Unknown History subcutaneous pen injector (Trulicity) Allergy/AdvReac Type Severity Reaction Status Date / Time Penicillins Allergy Rash Verified 01/12/23 11:06 Social History Smoking Status: Current every day smoker tobacco type: cigarettes ROS ROS ED Constitutional Constitutional ED: Denies chills or fever(s) Eyes Eyes: Denies blurry vision or change in vision ENT ENT ED: Denies rhinorrhea or sore throat Cardiovascular Cardiovascular: Reports palpitations; Denies chest pain Respiratory/Chest Respiratory/Chest: Reports cough; Denies dyspnea Gastrointestinal Gastrointestinal: Reports nausea and vomiting Genitourinary Genitourinary ED: Denies dysuria or hematuria Musculoskeletal Musculoskeletal: Reports neck pain; Denies back pain Integumentary Denies abscess or rash Neurologic Neurologic: Denies headache(s) or weakness Allergic/Immunologic Allergic/Immunologic ED: Denies mouth swelling or urticaria EXAM Physical Exam Const Vital Signs: 08/03/24 09:43 08/03/24 10:43 08/03/24 11:00 Temperature 97.1 F L 98.6 F Temperature Source Temporal Oral Pulse Rate 116 H 64 78 Respiratory Rate 22 H 16 16 Blood Pressure 147/129 H 140/78 H 139/71 H Blood Pressure Mean 135 98 93 Pulse Ox 98 98 98 Oxygen Delivery Method Room Air Room Air Room Air Positive well nourished and well developed General Appearance ED: well developed and NAD HEENT Reports moist mucous membranes atraumatic Neck supple and no JVD Resp normal respiratory effort and clear to auscultation bilaterally Cardio regular rhythm Rate: tachycardic GI soft to palpation and non-distended Palpation: tender epigastric and LUQ; Negative for guarding Neuro oriented x3, CN's II-XII intact bilaterally and no sensory deficits noted [place] Coma Scale: document GCS findings Spontaneous Obeys Commands Oriented 15 Sensorium / Orientation: alert Motor Exam: strength 5/5 throughout Psych Mood & Affect: depressed, anxious and tearful MDM MDM MDM Narrative Medical decision making narrative: Medical screening labs will be obtained. CBC will be obtained to assess for leukocytosis and anemia. Basic metabolic profile will be obtained to assess for electrolyte abnormality and renal function. Hepatic profile will be obtained to assess for hepatic function. Lipase will be obtained to assess for pancreatitis. Serum alcohol level will be obtained to assess for alcohol intoxication. Urine drug screen will be obtained to assess for substance abuse. Lab Data Attestation: I reviewed the patient's lab results. Lab results narrative: CBC was reviewed and was within normal limits. Serum alcohol level was reviewed and was 85. Basic metabolic profile was reviewed. Glucose was elevated at 495. Creatinine was elevated at 1.96. Hepatic profile was reviewed and was essentially within normal limits. Lipase was reviewed and was normal at 64. Urine tox screen was reviewed and was positive for cannabinoids. Labs: Laboratory Results - last 24 hr 08/03/24 08/03/24 08/03/24 10:09 10:12 10:30 WBC 7.9 RBC 4.67 Hgb 14.4 Hct 42.8 MCV 91.6 MCH 30.8 MCHC 33.6 RDW Std Deviation 42.0 RDW Coeff of [place] 12.4 Plt Count 253 MPV 11.6 Immature Gran % (Auto) 0.300 Neut % (Auto) 54.9 Lymph % (Auto) 37.0 [place] % (Auto) 6.3 Eos % (Auto) 0.9 Baso % (Auto) 0.6 Absolute Neuts (auto) 4.3 Absolute Lymphs (auto) 2.92 Nucleated RBC % 0 Sodium 132 L Potassium 4.0 Chloride 96 L Carbon Dioxide 25.0 Anion Gap 11 BUN 17 Creatinine 1.96 H Estim Creat Clear Calc 50.58 Est GFR (MDRD) Af Amer 46 L Est GFR (MDRD) Non-Af 38 L BUN/Creatinine Ratio 8.7 L Glucose 495 H* Calcium 8.6 Total Bilirubin 0.30 Direct Bilirubin 0.11 AST 18 ALT 38 Alkaline Phosphatase 124 H Total Protein 7.8 Albumin 3.7 Globulin 4.1 Lipase 64 Urine Opiates Screen NEGATIVE Urine Methadone Screen NEGATIVE Ur Barbiturates Screen NEGATIVE Ur Phencyclidine Scrn NEGATIVE Ur Amphetamines Screen NEGATIVE MDMA (Ecstasy) Screen NEGATIVE U Benzodiazepines Scrn NEGATIVE Urine Cocaine Screen NEGATIVE U Cannabinoids Screen POSITIVE H Ur Drug Screen Comment Ethyl Alcohol 85.0 Management Discussion w/another healthcare provider: Hospitalist Treatment and Re-Evaluation Narrative: Patient was given a nicotine patch. Patient was given 10 units of Humalog insulin. Patient was advised of his findings. Case was discussed with the hospitalist. She will admit the patient to her service for detox. Patient understood and was agreeable with the plan. All questions were answered. Discharge Plan Dx/Rx/DC Orders Clinical Impression: Alcohol withdrawal, Acute hyperglycemia Disposition Disposition: Acute Care Hospital [facility]
[2024-08-03 10:47] LABS: Anion Gap 11 (5-15); BUN 17 mg/dL (7-18); BUN/Creat Ratio 8.7 RATIO (10-20); Calcium,Total 8.6 mg/dL (8.5-10.1); Chloride 96 mmol/L (98-107); Creatinine, Serum 1.96 mg/dL (0.70-1.30); EST Glomerular Filtration Rate 38 mL/min (>60); Est Glom Filt Rate - Afr Amer 46 mL/min (>60); Estimated Creatinine Clearance 50.58 ml/min; Glucose 495 mg/dL (74-106); Sodium Level 132 mmol/L (136-145)
[2024-08-03 11:01] LABS: Amphetamine Urine NEGATIVE (<1000 ng/mL); Barbiturate Urine VISTA NEGATIVE (< 200 ng/mL); Benzodiazepine Urine VISTA NEGATIVE (< 200 ng/mL); Cocaine Urine VISTA NEGATIVE (< 300 ng/mL); Ecstacy Urine VISTA NEGATIVE (< 500 ng/mL); Methadone Urine VISTA NEGATIVE (< 300 ng/mL); PCP Urine VISTA NEGATIVE (< 25 ng/mL); THC Urine VISTA POSITIVE (< 50 ng/mL); Vista UDS pH Range 6
[2024-08-03] MEDS: Insulin Lispro 100 UNIT/ML INSULN.PEN 10 UNIT SC (11:02)
[2024-08-03 11:11] LABS: AST(SGOT) 18 U/L (15-37); Alanine Aminotransfer ALT/SGPT 38 U/L (16-61); Albumin, Serum 3.7 g/dL (3.2-5.0); Alkaline Phosphatase 124 U/L (45-117); Bilirubin, Direct 0.11 mg/dL (0.00-0.30); Globulin 4.1 g/dL (2.2-4.2); Lipase 64 U/L (13-75); Protein, Total 7.8 g/dL (6.4-8.2)
--- NOTE | 2024-08-03 11:26 | PCM.HP.STD ---
HPI - General General Date of Admission: 08/03/24 Date of Service: 08/03/24 Chief Complaint: Alcohol detox with pending withdrawal HPI Narrative LARRY PATEL, is a 59 M who presented to the emergency department [facility] on 08/03/2024 requesting detox from alcohol. The patient states he drinks on a daily basis with his last drink being about 9:30 AM on the day of presentation. He states that he has been a longtime drinker and has never been through alcohol detox. He indicates he typically drinks about 6 pints of beer daily followed by a couple of shots at least may be more. He has never gone days without drinking. On presentation he was complaining of some nausea but no other withdrawal symptoms. He also has a history of diabetes. States he typically takes his Trulicity but did not take it last week so he is gone almost 2 weeks without any subcu medication for his diabetes. He states he has been taking his oral metformin. He admits to intermittent cocaine and methamphetamine use but has not used recently. He also admits to cannabis use. States that he uses this fairly regularly and smokes it. Vital signs on presentation showed temperature 97.1, heart rate 116, respiratory 22, blood pressure was 147/129, pulse ox was 98% on room air. CBC is unremarkable. Chemistry panel shows elevated serum creatinine 1.96 which is elevated from his baseline of 1.3-1.4. His sodium was 132 however this is pseudohyponatremia as his serum glucose was 495. Transaminases were normal. Lipase was 64. UDS was positive only for cannabis. [facility] Medical History Substance abuse Anxiety Hypertension CKD (chronic kidney disease) stage 2, GFR 60-89 ml/min Suicidal ideation Marijuana abuse Depression Diabetes Home Medications ?Medication ?Instructions ?Recorded ?Last Taken ?Type fluoxetine 20 mg capsule 40 mg PO DAILY depression 12/10/16 05/12/17 History trazodone 50 mg tablet 50 mg PO QHS PRN insomnia 30 days 09/16/21 Unknown Rx #14 tabs fluoxetine 40 mg capsule (Prozac) 40 mg PO DAILY 30 days #30 caps 05/07/22 Unknown Rx venlafaxine 150 mg 150 mg PO DAILY 05/07/22 Unknown History capsule,extended release 24 hr (Effexor XR) Held on 08/03/24. Instructions: castillo ibuprofen 600 mg tablet 600 mg PO Q8H PRN PRN pain #20 07/30/22 Unknown Rx TABLETS buspirone 10 mg tablet 10 mg PO BID 01/12/23 Unknown History losartan 25 mg tablet 25 mg PO DAILY 01/12/23 Unknown History metformin 1,000 mg tablet 1,000 mg PO DAILY diabeties 01/12/23 Unknown History dulaglutide 3 mg/0.5 mL mg subcut .weekly 08/03/24 Unknown History subcutaneous pen injector (Trulicity) montelukast 10 mg tablet 10 mg PO DAILY allergies 08/03/24 Unknown History Allergy/AdvReac Type Severity Reaction Status Date / Time Penicillins Allergy Rash Verified 01/12/23 11:06 other no surgical history Social History (Updated 08/03/24 @ 17:[address] Judy Mcdaniel, DO) Smoking Status: Current every day smoker tobacco type: cigarettes alcohol intake: current substance use type: marijuana, crack/cocaine and amphetamines ROS Constitutional Constitutional: Denies anorexia, change in weight, chills, fatigue, fever(s), malaise, night sweats, weakness or other Eyes Eyes: Denies blurry vision, change in eye color, change in vision, discharge from eye(s), double vision, erythema, eye pain, loss of vision or other ENT HEENT: Denies abnormal hearing, dysphagia, ear pain, epistaxis, headache(s), hearing loss, nasal congestion, nasal discharge, post nasal drip, sinus pressure, sore throat or other Cardiovascular Cardiovascular: Denies chest pain, claudication, dyspnea on exertion, edema, lightheadedness, orthopnea, palpitations, paroxysmal nocturnal dyspnea, rapid heart rate, syncope or other Respiratory/Chest Respiratory/Chest: Denies cough, dyspnea, excessive phlegm production, hemoptysis, productive cough, shortness of breath at rest, shortness of breath with exertion, wheezing or other Gastrointestinal Gastrointestinal: Reports nausea; Denies abdominal pain, coffee ground emesis, constipation, diarrhea, dyspepsia, hematemesis, hematochezia, loose stools, melena, vomiting or other Genitourinary Genitourinary: Denies burning urination, difficulty urinating, dysuria, hematuria, nocturia, urinary frequency, urinary hesitancy, urinary incontinence, urinary urgency or other Musculoskeletal Musculoskeletal: Denies arthralgias, back pain, joint pain, joint stiffness, joint swelling, myalgias, neck pain or other Neurologic Neurologic: Denies abnormal gait, abnormal speech, confusion, disequilibrium, dizziness, focal weakness, headache(s), numbness, paresthesias, seizure-like activity, seizures, syncope, tingling, tremor(s) or other Psychiatric Psychiatric: Reports anxiety and depression; Denies homicidal ideation, suicidal ideation or other Endocrine Endocrinology: Denies change in body appearance, cold intolerance, excessive sweating, heat intolerance, polydipsia, polyuria or other Hematologic/Lymphatic Hematologic/Lymphatic: Denies anemia, easy bleeding, easy bruising, lymphadenopathy or other Allergic/Immunologic Allergic/Immunologic: Denies rhinitis, hives, eczemia, asthma or other Vital Signs Vital Signs Vital Signs: 08/03/24 09:43 08/03/24 10:43 08/03/24 11:00 Temperature 97.1 F L 98.6 F Temperature Source Temporal Oral Pulse Rate 116 H 64 78 Respiratory Rate 22 H 16 16 Blood Pressure 147/129 H 140/78 H 139/71 H Blood Pressure Mean 135 98 93 Pulse Ox 98 98 98 Oxygen Delivery Method Room Air Room Air Room Air Weight Weight: 98.6 kg Body Mass Index (BMI) 29.5 Physical Exam Const alert, oriented x3, no apparent distress, average body habitus, healthy appearing and well nourished Constitutional Narrative: Middle-aged, -[place]er, male, lying up in bed, watching television, appears comfortable and nontoxic at this time General Appearance: cooperative HEENT normocephalic, head/scalp atraumatic and hearing grossly normal bilaterally HEENT Narrative: Mallampati 2, no thrush Resp normal respiratory effort, no retractions, no use of accessory muscles and clear to auscultation bilaterally Auscultation: Negative for rales, rhonchi or wheezes Cardio regular rate, regular rhythm, S1 normal heart sound, S2 normal heart sound, no murmurs, no rub, no gallops and no clicks GI normal to inspection, nondistended, normoactive bowel sounds, soft to palpation and non-tender Extremity no clubbing, cyanosis or edema Extremity Narrative: Pedal pulses are 2+ Neuro oriented x3, moves all extremities and no focal motor deficits Speech: speech normal Psych affect normal Psych Narrative: Very pleasant, appreciative of care, interacts appropriately Results Lab / Micro Data 08/03/24 10:09 08/03/24 10:09 Labs: Laboratory Results - last 24 hr 08/03/24 10:09: WBC 7.9, RBC 4.67, Hgb 14.4, Hct 42.8, MCV 91.6, MCH 30.8, MCHC 33.6, RDW Std Deviation 42.0, RDW Coeff of [place] 12.4, Plt Count 253, MPV 11.6, Immature Gran % (Auto) 0.300, Neut % (Auto) 54.9, Lymph % (Auto) 37.0, [place] % (Auto) 6.3, Eos % (Auto) 0.9, Baso % (Auto) 0.6, Absolute Neuts (auto) 4.3, Absolute Lymphs (auto) 2.92, Nucleated RBC % 0, Sodium 132 L, Potassium 4.0, Chloride 96 L, Carbon Dioxide 25.0, Anion Gap 11, BUN 17, Creatinine 1.96 H, Estim Creat Clear Calc 50.58, Est GFR (MDRD) Af Amer 46 L, Est GFR (MDRD) Non-Af 38 L, BUN/Creatinine Ratio 8.7 L, Glucose 495 H*, Calcium 8.6, Ethyl Alcohol 85.0 08/03/24 10:12: Total Bilirubin 0.30, Direct Bilirubin 0.11, AST 18, ALT 38, Alkaline Phosphatase 124 H, Total Protein 7.8, Albumin 3.7, Globulin 4.1, Lipase 64 08/03/24 10:30: Urine Opiates Screen NEGATIVE, Urine Methadone Screen NEGATIVE, Ur Barbiturates Screen NEGATIVE, Ur Phencyclidine Scrn NEGATIVE, Ur Amphetamines Screen NEGATIVE, MDMA (Ecstasy) Screen NEGATIVE, U Benzodiazepines Scrn NEGATIVE, Urine Cocaine Screen NEGATIVE, U Cannabinoids Screen POSITIVE H, Ur Drug Screen Comment Assessment & Plan Assessment/Plan (1) Acute hyperglycemia: (2) Alcohol withdrawal: (3) Alcohol abuse: (4) GIOVANNY (acute kidney injury): PLAN: Plan Alcohol abuse with pending alcohol withdrawal -Last drink was at 930 on the day of presentation -Has not been through detox previously -Drinks about 9 16 ounce beers a day and some shots to follow -Start phenobarbital taper -CIWA protocol -Thiamine and folate -As needed medication for symptom management related to withdrawal -180 consultation for assistance with discharge planning and outpatient follow-up GIOVANNY on CKD stage II -Baseline serum creatinine runs between 1.3 and 1.4 -Will give 1 L of IV fluids -Will continue losartan for now as I do anticipate he will improve with IV fluids -If renal function still elevated tomorrow and not back to baseline would consider stopping losartan -Repeat lab in a.m. DM-2 with hyperglycemia -Patient takes Trulicity and metformin--hold both while hospitalized> -Patient missed his last Trulicity dose last Sunday so it is essentially been 2 weeks since he has had any insulin -Start subcu Lantus 20 units at at bedtime -15 units of NPH given on admission -SSI as ordered -Carb controlled diet -Accu-Cheks as ordered Essential hypertension -Continue home losartan Depression/anxiety -Continue home fluoxetine -Continue BuSpar Seasonal allergies -Continue home Singulair Insomnia -Continue trazodone Polysubstance abuse -Besides alcohol patient abuses cocaine, methamphetamines and marijuana -Recommend cessation on all accounts to assist in sobriety from alcohol Tobacco abuse -Recommend cessation -Nicotine patch available DVT prophylaxis -Patient is higher risk with multiple comorbidities so will place on enoxaparin daily CODE STATUS -Full code as verified on admission Charges/Coding Visit Charges Inpatient E&M: 26955 Init Hosp L2
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
[2024-08-03] MEDS: Phenobarbital 32.4 MG Tablet 64.8 MG PO ×3 (13:28→21:11)
[2024-08-03] MEDS: Ondansetron 8 MG Tablet PO ×2 (13:28→21:12)
[2024-08-03] MEDS: 0.9% Normal Saline (1000mL) 1,000 ML 1000 ML IV (13:29)
[2024-08-03] MEDS: Insulin NPH Human 100 UNITS/ML PEN 15 UNITS SC (13:30)
[2024-08-03] MEDS: Insulin Lispro 100 UNIT/ML INSULN.PEN SC ×2 (15:44→21:18)
[2024-08-03 16:14] LABS: Bedside Glucose 326 mg/dL (74-106)
[2024-08-03] MEDS: Pantoprazole Sodium 40 MG Tablet PO (17:57)
[2024-08-03] MEDS: 0.9% Normal Saline (1000mL) 1,000 ML 125 ML IV (17:57)
[2024-08-03] MEDS: traZODone 100 MG Tablet PO (21:11)
[2024-08-03] MEDS: busPIRone 5 MG Tablet 10 MG PO (21:12)
[2024-08-03] MEDS: Insulin Glargine-YFGN 100 UNIT/ML Pen 25 UNIT SC (21:17)
[2024-08-03 23:11] LABS: Bedside Glucose 203 mg/dL (74-106)
[2024-08-04 04:45] VITALS: BP 139/88; PULSE 94; RESP 16; TEMP 36.4; O2SAT 96
[2024-08-04] MEDS: Phenobarbital 32.4 MG Tablet 64.8 MG PO ×5 (05:08→22:22)
[2024-08-04] MEDS: Insulin Lispro 100 UNIT/ML INSULN.PEN SC ×4 (06:22→22:24)
[2024-08-04 07:03] LABS: Bedside Glucose 282 mg/dL (74-106)
[2024-08-04 08:51] LABS: Anion Gap 7 (5-15); BUN 14 mg/dL (7-18); BUN/Creat Ratio 10.3 RATIO (10-20); Calcium,Total 7.7 mg/dL (8.5-10.1); Chloride 103 mmol/L (98-107); Creatinine, Serum 1.36 mg/dL (0.70-1.30); EST Glomerular Filtration Rate 57 mL/min (>60); Est Glom Filt Rate - Afr Amer 70 mL/min (>60); Estimated Creatinine Clearance 71.92 ml/min; Glucose 277 mg/dL (74-106); Magnesium 2.4 mg/dL (1.6-2.6); Phosphorus 2.3 mg/dL (2.5-4.9); Potassium 3.5 mmol/L (3.5-5.1); Sodium Level 134 mmol/L (136-145)
[2024-08-04] MEDS: Fluoxetine HCl 40 MG CAPSULE PO (09:29)
[2024-08-04] MEDS: Pantoprazole Sodium 40 MG Tablet PO (09:29)
[2024-08-04] MEDS: busPIRone 5 MG Tablet 10 MG PO ×2 (09:29→22:23)
[2024-08-04] MEDS: Montelukast 10 MG Tablet PO (09:29)
[2024-08-04] MEDS: Losartan Potassium 25 MG Tablet PO (09:30)
[2024-08-04] MEDS: Folic Acid 1 MG Tablet PO (09:30)
[2024-08-04] MEDS: Thiamine Hydrochloride 100 MG Tablet PO (09:30)
[2024-08-04] MEDS: Enoxaparin 40 MG/0.4 ML Syringe SC (09:31)
[2024-08-04] MEDS: hydrOXYzine PAM 25 MG Capsule 50 MG PO ×3 (09:42→22:22)
--- NOTE | 2024-08-04 11:28 | ADDICTION ---
Addendum entered by Alexandria Morillo 08/05/24 11:07: Transportation to [facility], inpatient treatment center, is set for Sunday at 10am. Original Note: This blurb writer met with PT to conduct ASAM, MSE, AUDIT, DUDIT assessments and to plan for d/c. PT A+Ox4 and participated actively. All assessments completed. PT plans to f/u with [facility] for in patient MH and [facility] treatment services on Sunday. [facility] will transport to treatment.
[2024-08-04] MEDS: Gabapentin 300 MG Capsule PO (12:23)
[2024-08-04 12:35] LABS: Bedside Glucose 339 mg/dL (74-106)
--- NOTE | 2024-08-04 15:42 | CASEMGMT ---
Social Work- SW met with pt to conduct SDOH assessment. Pt reports that he has natan homeless since June 28 and has been staying with friends. Pt reports that he has SNAp and uses pantries as needed. Pt reports that he utilizes [facility] transportation, walks, or friends transport him. Pt reports no safety concerns. SW provided snf information, housing information, food pantry, food box, and hot meals information, viola startzman information, [employer] card, and transportation information. Pt plan is to go to inpatient rehab at discharge. Pt reports no other needs at this time. NATY Gale
--- NOTE | 2024-08-04 15:57 | PN_ITS ---
Subjective Subjective Patient seen and examined. He had no complaints and had an night. He feels well. Review of systems negative. He denies any symptoms of withdrawal. He has remained hemodynamically stable. Objective Data Objective Data Vital Signs: Vital Signs Temp Pulse Resp BP Pulse Ox O2 Del Method 97.6 F L 94 16 139/88 H 96 Room Air 08/04/24 04:45 08/04/24 04:45 08/04/24 04:45 08/04/24 04:45 08/04/24 04:45 08/04/24 08:10 Oxygen Delivery Method Room Air Weight: 211 lb Body Mass Index (BMI) 28.6 Intake & Output: Intake and Output for Last 24 Hours 08/02/24 08/03/24 08/04/24 23:59 23:59 23:59 Intake Total 1600 / 2050 1750 / 1750 Output Total 400 / 400 Balance 1200 / 1650 1750 / 1750 Lab / Micro Data 08/03/24 10:09 08/04/24 06:04 Labs: Laboratory Results - last 24 hr 08/03/24 15:43: POC Glucose 326 H 08/03/24 21:16: POC Glucose 203 H 08/04/24 06:04: Sodium 134 L, Potassium 3.5, Chloride 103, Carbon Dioxide 24.0, Anion Gap 7, BUN 14, Creatinine 1.36 H, Estim Creat Clear Calc 71.92, Est GFR (MDRD) Af Amer 70, Est GFR (MDRD) Non-Af 57 L, BUN/Creatinine Ratio 10.3, G lucose 277 H, Calcium 7.7 L, Phosphorus 2.3 L, Magnesium 2.4 08/04/24 06:19: POC Glucose 282 H 08/04/24 12:15: POC Glucose 339 H Social Homelessness:: Sheltered Physical Exam Const alert, oriented x3, no apparent distress and well nourished General Appearance: cooperative and well developed HEENT normocephalic, head/scalp atraumatic, moist oral mucous membranes, oropharynx normal and gingiva normal Eyes PERRL and EOMs intact bilaterally Neck no lymphadenopathy and supple Lymph Lymphatic: no lymphadenopathy noted and no lymphedema noted Resp normal respiratory effort, normal air movement and clear to auscultation bilaterally Cardio regular rate, regular rhythm, S1 normal heart sound, S2 normal heart sound and no murmurs Peripheral Pulses: pulses 2+ throughout GI normal to inspection, nondistended, normoactive bowel sounds, soft to palpation, non-tender and non-distended Extremity normal capillary refill, no clubbing, cyanosis or edema and no calf tenderness General Extremity: no tenderness to palpation of joints or extremities Skin General Skin Exam: no breakdown Neuro CN's II-XII intact bilaterally, no focal motor deficits and no sensory deficits noted Motor Exam: strength 5/5 throughout and general weakness Psych thought process normal, cooperative and affect normal Appearance: appropriate Assessment & Plan Assessment/Plan (1) Alcohol withdrawal: (2) GIOVANNY (acute kidney injury): PLAN: Plan #Acute alcohol withdrawal * on alcohol withdrawal protocol with phenobarbital * on thiamine, folic acid and multivite. * #GIOVANNY on CKD II: resolved. Creatinine is down to 1.36 which is around her baseline. Will monitor. #Type 2 diabetes mellitus with hyperglycemia * on trulicity and metformin both of [facility] were held on admission * patient starte yajaira powers whilst in [facility]. ISS. Accuchecks ACHS * #Benign essential hypertension: on losartan #Depression and anxiety: on fluoxetine #Allergies: on singulair. #Polysubstance abuse * on uses cocaine, methamphetamines and marijuana * counseled to abstain from these drugs. * #Nicotine dependence: counseled to quit. Nicotine patch 21mg daily DVT prophylaxis: lovenox Charges/Coding Visit Charges Inpatient E&M: 42391 Subs Hosp L2
[2024-08-04 16:59] LABS: Bedside Glucose 245 mg/dL (74-106)
[2024-08-04] MEDS: traZODone 100 MG Tablet PO (22:22)
[2024-08-04] MEDS: Insulin Glargine-YFGN 100 UNIT/ML Pen 25 UNIT SC (22:23)
[2024-08-04 22:28] VITALS: BP 112/74; PULSE 84; RESP 16; TEMP 36.9; O2SAT 98
[2024-08-04 22:35] LABS: Bedside Glucose 260 mg/dL (74-106)
[2024-08-05] MEDS: Phenobarbital 32.4 MG Tablet 64.8 MG PO ×6 (01:03→22:17)
[2024-08-05 01:08] VITALS: BP 103/78; PULSE 78; RESP 17; TEMP 36.8; O2SAT 100
[2024-08-05 05:55] VITALS: BP 122/52; PULSE 78; RESP 18; TEMP 36.6; O2SAT 98
[2024-08-05] MEDS: Insulin Lispro 100 UNIT/ML INSULN.PEN SC ×4 (05:58→22:22)
[2024-08-05 06:20] LABS: Bedside Glucose 217 mg/dL (74-106)
[2024-08-05 09:42] VITALS: BP 139/72; PULSE 90; RESP 16; TEMP 36.6; O2SAT 98
[2024-08-05] MEDS: Montelukast 10 MG Tablet PO (09:42)
[2024-08-05] MEDS: Thiamine Hydrochloride 100 MG Tablet PO (09:42)
[2024-08-05] MEDS: Enoxaparin 40 MG/0.4 ML Syringe SC (09:42)
[2024-08-05] MEDS: busPIRone 5 MG Tablet 10 MG PO ×2 (09:42→22:17)
[2024-08-05] MEDS: Losartan Potassium 25 MG Tablet PO (09:42)
[2024-08-05] MEDS: Pantoprazole Sodium 40 MG Tablet PO (09:42)
[2024-08-05] MEDS: Fluoxetine HCl 40 MG CAPSULE PO (09:42)
[2024-08-05] MEDS: Folic Acid 1 MG Tablet PO (09:42)
--- NOTE | 2024-08-05 11:07 | ADDICTION ---
Transportation to [facility], inpatient treatment center, is set for Sunday morning at 10am.
[2024-08-05 12:20] LABS: Bedside Glucose 368 mg/dL (74-106)
--- NOTE | 2024-08-05 13:00 | PN_ITS ---
Subjective Subjective Patient seen and examined. He had no active complaints. He had an uneventful night. Review of systems otherwise negative. He has remained hemodynamically stable. Objective Data Objective Data Vital Signs: Vital Signs Temp Pulse Resp BP Pulse Ox O2 Del Method 98 F 78 18 122/52 H 98 Room Air 08/05/24 05:55 08/05/24 05:55 08/05/24 05:55 08/05/24 05:55 08/05/24 05:55 08/05/24 05:55 Oxygen Delivery Method Room Air Weight: 211 lb Body Mass Index (BMI) 28.6 Intake & Output: Intake and Output for Last 24 Hours 08/03/24 08/04/24 08/05/24 23:59 23:59 23:59 Intake Total 1600 / 2050 1750 / 1750 480 / 480 Output Total 400 / 400 400 / 400 Balance 1200 / 1650 1750 / 1750 80 / 80 Lab / Micro Data 08/03/24 10:09 08/04/24 06:04 Labs: Laboratory Results - last 24 hr 08/04/24 16:38: POC Glucose 245 H 08/04/24 22:18: POC Glucose 260 H 08/05/24 05:57: POC Glucose 217 H 08/05/24 11:56: POC Glucose 368 H Social Homelessness:: Sheltered Physical Exam Const alert, oriented x3, no apparent distress, average body habitus, healthy appearing and well nourished General Appearance: cooperative and well developed HEENT normocephalic, head/scalp atraumatic, hearing grossly normal bilaterally, moist oral mucous membranes, oropharynx normal and gingiva normal Eyes PERRL and EOMs intact bilaterally Neck no lymphadenopathy and supple Lymph Lymphatic: no lymphadenopathy noted and no lymphedema noted Resp normal respiratory effort, normal air movement, no retractions, no use of accessory muscles and clear to auscultation bilaterally Cardio regular rate, regular rhythm, S1 normal heart sound, S2 normal heart sound and no murmurs Peripheral Pulses: pulses 2+ throughout GI normal to inspection, nondistended, normoactive bowel sounds, soft to palpation, non-tender and non-distended Extremity normal capillary refill, no clubbing, cyanosis or edema and no calf tenderness Extremity Narrative: Pedal pulses are 2+ General Extremity: no tenderness to palpation of joints or extremities Skin General Skin Exam: no breakdown Neuro oriented x3, CN's II-XII intact bilaterally, moves all extremities, no focal motor deficits and no sensory deficits noted Speech: speech normal Motor Exam: strength 5/5 throughout and general weakness Psych thought process normal, cooperative and affect normal Appearance: appropriate Assessment & Plan Assessment/Plan (1) Alcohol withdrawal: (2) GIOVANNY (acute kidney injury): PLAN: Plan #Acute alcohol withdrawal * on alcohol withdrawal protocol with phenobarbital * on thiamine, folic acid and multivite. * #GIOVANNY on CKD II: resolved. #Type 2 diabetes mellitus with hyperglycemia * on trulicity and metformin both of [facility] were held on admission * patient started on lantus whilst in [facility]. ISS. Accuchecks ACHS * #Benign essential hypertension: on losartan #Depression and anxiety: on fluoxetine #Allergies: on singulair. #Polysubstance abuse * on uses cocaine, methamphetamines and marijuana * counseled to abstain from these drugs. * #Nicotine dependence: counseled to quit. Nicotine patch 21mg daily DVT prophylaxis: lovenox Charges/Coding Visit Charges Inpatient E&M: 30932 Subs Hosp L2
[2024-08-05 13:12] VITALS: BP 114/64; PULSE 97; RESP 16; TEMP 36.7; O2SAT 97
[2024-08-05 17:00] VITALS: BP 114/76; PULSE 85; O2SAT 98
[2024-08-05 17:30] LABS: Bedside Glucose 255 mg/dL (74-106)
[2024-08-05] MEDS: traZODone 100 MG Tablet PO (22:17)
[2024-08-05] MEDS: Insulin Glargine-YFGN 100 UNIT/ML Pen 25 UNIT SC (22:21)
[2024-08-05 22:27] VITALS: BP 122/87; PULSE 87; RESP 16; TEMP 36.8; O2SAT 97
[2024-08-05 22:40] LABS: Bedside Glucose 369 mg/dL (74-106)
[2024-08-06] MEDS: Phenobarbital 32.4 MG Tablet 64.8 MG PO (02:46)
[2024-08-06 02:52] VITALS: BP 127/74; PULSE 79; RESP 17; TEMP 36.4; O2SAT 99
[2024-08-06 06:56] LABS: Bedside Glucose 107 mg/dL (74-106)
--- NOTE | 2024-08-06 09:36 | DCINST_ITS ---
Discharge Instructions Diet Discharge Diet: Low fat / Low cholesterol DC O2, CPAP, BIPAP needs Home O2 Discharge instructions: No Dressing / Incision Discharge Activity: Return to Normal Activity Weight Bearing Status: Weight bearing as tolerated Dressing / Incision Call your doctor if you observe: Fever of 101 or Higher, Shortness of breath, Dizziness, Swelling in the ankles and Chest pain Follow Up Care Test Results: Test results from this visit will be discussed in further detail at your follow- up appointment, if applicable. Discharge Plan Admission Admit Date/Time: 08/03/24 11:19 Primary Reason for Your Visit: acute alcohol withdrawal Attending Provider: Yesenia Mi Primary Care Provider: Sloan Merino Consulting Providers: Judy Mcdaniel Instructions Patient Instructions: Alcohol Withdrawal: What to Expect Discharge Orders/Prescriptions Prescriptions: Continued fluoxetine 20 MG capsule 40 mg PO DAILY trazodone 50 mg tablet 50 mg PO QHS PRN (Reason: insomnia) 30 Days Qty: 14 0RF venlafaxine [Effexor XR] 150 mg Capsule,Extended Release 24hr 150 mg PO DAILY fluoxetine [Prozac] 40 mg capsule 40 mg PO DAILY 30 Days Qty: 30 0RF ibuprofen 600 mg tablet 600 mg PO Q8H PRN PRN (Reason: pain) Qty: 20 0RF metformin 1,000 mg tablet 1,000 mg PO DAILY Patient Comments: TAKE 1 TABLET BY MOUTH TWICE DAILY losartan 25 mg tablet 25 mg PO DAILY Patient Comments: TAKE 1 TABLET BY MOUTH EVERY DAY buspirone 10 mg tablet 10 mg PO BID Patient Comments: take one tablet by mouth twice a day for anxiety Trulicity 3 mg/0.5 mL pen injector SUBCUT .weekly Patient Comments: [NO ORIGINAL SIG] montelukast 10 mg tablet 10 mg PO DAILY Referrals / Follow Up: Sloan Merino, ELECT[employer]IC RANGE PREPARER-C [Primary Care Provider] - Within 1 Week Disposition Disposition (needs filled in before D/C Order can be placed): Home, Self Care
--- NOTE | 2024-08-06 09:37 | PCM.DC.SUM ---
Providers Date of Admission: 08/03/24 Date of Discharge: 08/06/24 Primary Care Physician: MIKE Adams Reason For Visit: ETOH DETOX/HYPERGLYCEMIA Diagnosis Discharge Diagnosis (1) Alcohol withdrawal: Status: Acute Code(s): F10.939 - Alcohol use, unspecified with withdrawal, unspecified (2) GIOVANNY (acute kidney injury): Status: Acute Code(s): N17.9 - Acute kidney failure, unspecified Plan #Acute alcohol withdrawal on alcohol withdrawal protocol with phenobarbital on thiamine, folic acid and multivite. #GIOVANNY on CKD II: resolved. #Type 2 diabetes mellitus with hyperglycemia on trulicity and metformin both of [facility] were held on admission patient started on lantus whilst in [facility]. ISS. Accuchecks ACHS #Benign essential hypertension: on losartan #Depression and anxiety: on fluoxetine #Allergies: on singulair. #Polysubstance abuse on uses cocaine, methamphetamines and marijuana counseled to abstain from these drugs. #Nicotine dependence: counseled to quit. Nicotine patch 21mg daily DVT prophylaxis: lovenox Medications at Discharge Home Medications fluoxetine 20 mg capsule 40 mg PO DAILY depression 12/10/16 trazodone 50 mg tablet 50 mg PO QHS PRN insomnia 30 days #14 tabs 09/16/21 fluoxetine 40 mg capsule (Prozac) 40 mg PO DAILY 30 days #30 caps 05/07/22 venlafaxine 150 mg capsule,extended release 24 hr (Effexor XR) 150 mg PO DAILY 05/07/22 ibuprofen 600 mg tablet 600 mg PO Q8H PRN PRN pain #20 TABLETS 07/30/22 buspirone 10 mg tablet 10 mg PO BID 01/12/23 losartan 25 mg tablet 25 mg PO DAILY 01/12/23 metformin 1,000 mg tablet 1,000 mg PO DAILY diabeties 01/12/23 dulaglutide 3 mg/0.5 mL subcutaneous pen injector (Trulicity) mg subcut .weekly 08/03/24 montelukast 10 mg tablet 10 mg PO DAILY allergies 08/03/24 Hospital Course Operations None Procedures None Summary of Care Provided Minutes Spent on Discharge: 38 Hospital Course: Patient is a 59-year-old male with past medical history as outlined was admitted through the ED on 08/03/2024 for acute alcohol detox and withdrawal. Patient states he drank alcohol on a daily basis with the last drink being around 9:30 AM on the day of admission. He usually drank about 6 pints of beer daily followed by at least a couple of shots. He complained of nausea on admission but had no other symptoms of withdrawal. He also had a history of diabetes and said he usually took Trulicity though he had not taken it for about 2 weeks prior to admission. He had been taking his metformin though. Patient also admitted to intermittent cocaine and methamphetamine use as well as cannabis use. Labs were significant for elevated glucose of 195 and sodium was 132 but this was thought to be due to hyponatremia. Creatinine was elevated at 1.96. Urine tox was positive for cannabis. He was admitted and managed for acute alcohol withdrawal. He was started on alcohol drawl protocol with phenobarbital. He was also hydrated with IV fluids and his elevated creatinine trended downwards. Patient tolerated the 3-day detox process and did well. He remained stable and was discharged to a alcohol rehab facility on 08/06/2024. He is follow-up with his primary care doctor within 1 to 2 weeks. Patient seen and examined prior to discharge. He had no complaints and felt well. He had an uneventful night. Review of systems otherwise negative. Labs and vitals reviewed. Home medication reviewed and reconciled. Physical Exam Const alert, oriented x3, no apparent distress, average body habitus, healthy appearing and well nourished General Appearance: cooperative, comfortable, well kempt and well developed HEENT normocephalic, head/scalp atraumatic, hearing grossly normal bilaterally, moist oral mucous membranes, oropharynx normal and gingiva normal Mouth: oral and palatal mucosa normal Eyes PERRL and EOMs intact bilaterally Neck no lymphadenopathy and supple Lymph Lymphatic: no lymphadenopathy noted and no lymphedema noted Resp normal respiratory effort, normal air movement, no retractions, no use of accessory muscles and clear to auscultation bilaterally Cardio regular rate, regular rhythm, S1 normal heart sound, S2 normal heart sound, no murmurs, no rub, no gallops and no clicks Peripheral Pulses: pulses 2+ throughout GI normal to inspection, nondistended, normoactive bowel sounds, soft to palpation, non-tender and non-distended Extremity normal to inspection, full ROM, normal capillary refill, no clubbing, cyanosis or edema and no calf tenderness General Extremity: no tenderness to palpation of joints or extremities Skin no rashes or lesions noted General Skin Exam: no breakdown Neuro oriented x3, CN's II-XII intact bilaterally, moves all extremities, no focal motor deficits and no sensory deficits noted Speech: speech normal Motor Exam: strength 5/5 throughout and general weakness Psych thought process normal, cooperative and affect normal Appearance: appropriate Medical Records Data Homelessness:: Sheltered Weight / BMI Weight Weight: 211 lb Body Mass Index (BMI) 28.6 ABG / Lab / Microbiology Data 08/03/24 10:09 08/04/24 06:04 Laboratory: Laboratory Results - last 24 hr 08/05/24 22:20: POC Glucose 369 H 08/06/24 06:37: POC Glucose 107 H D/C Instructions Discharge Diet: Low fat / Low cholesterol Discharge Activity: Return to Normal Activity Weight Bearing Status: Weight bearing as tolerated Call your doctor if you observe: Fever of 101 or Higher, Shortness of breath, Dizziness, Swelling in the ankles and Chest pain DC O2, CPAP, BIPAP Needs Home O2 Discharge instructions: No Meaningful Use Info Meaningful Use Meaningful Use Diagnoses (Choose all that apply): None applicable Ischemic Stroke Statin Dosing Therapy Reference: STATIN DOSE THERAPY REFERENCE: * Patients > 75 years receive moderate or high dose statin therapy. * Patients 75 years or YOUNGER should receive HIGH intensity statin dose unless contraindicated. You will be required to document reason for non-treatment if statin daily dose does not meet guidelines. HIGH DOSE STATIN THERAPY DAILY Atorvastatin > than or = to 40 mg Rosuvastatin > than or = to 20 mg Amlodipine + Atorvastatin > than or = to 2.5/40 mg Ezetimibe + Simvastatin 10/80 mg Simvastatin 80mg Discharge Plan Admission Admit Date/Time: 08/03/24 11:19 Primary Reason for Your Visit: acute alcohol withdrawal Attending Provider: Yesenia Mi Primary Care Provider: Sloan Merino Belinda Consulting Providers: Judy Mcdaniel Instructions Patient Instructions: Alcohol Withdrawal: What to Expect Discharge Orders/Prescriptions Prescriptions: Continued fluoxetine 20 MG capsule 40 mg PO DAILY trazodone 50 mg tablet 50 mg PO QHS PRN (Reason: insomnia) 30 Days Qty: 14 0RF venlafaxine [Effexor XR] 150 mg Capsule,Extended Release 24hr 150 mg PO DAILY fluoxetine [Prozac] 40 mg capsule 40 mg PO DAILY 30 Days Qty: 30 0RF ibuprofen 600 mg tablet 600 mg PO Q8H PRN PRN (Reason: pain) Qty: 20 0RF metformin 1,000 mg tablet 1,000 mg PO DAILY Patient Comments: TAKE 1 TABLET BY MOUTH TWICE DAILY losartan 25 mg tablet 25 mg PO DAILY Patient Comments: TAKE 1 TABLET BY MOUTH EVERY DAY buspirone 10 mg tablet 10 mg PO BID Patient Comments: take one tablet by mouth twice a day for anxiety Trulicity 3 mg/0.5 mL pen injector SUBCUT .weekly Patient Comments: [NO ORIGINAL SIG] montelukast 10 mg tablet 10 mg PO DAILY Referrals / Follow Up: Sloan Merino VSBelinda, [employer] OFFICER-C [Primary Care Provider] - Within 1 Week Disposition Disposition (needs filled in before D/C Order can be placed): Home, Self Care Charges/Coding Visit Charges Inpatient E&M: 69762 Disch Hosp >30min
[2024-08-06 10:04] VITALS: BP 120/70; PULSE 77; RESP 16; TEMP 36.9; O2SAT 100
== END 2024-08-06 09:56 | DRG 774 ==
LOC: ED 11:31 → MS3 11:38
PROVIDERS: Admitting Provider Internal Medicine; Emergency Provider Emergency Medicine; PCP Nurse Practitioner Family; Visit Provider Student in an Organized Health Care Education/Training Program
DX: F10.139 Alcohol abuse with withdrawal, unspecified (principal); F14.10 Cocaine abuse, uncomplicated; N17.9 Acute kidney failure, unspecified; E11.22 Type 2 diabetes mellitus with diabetic chronic kidney disease; I12.9 Hypertensive chronic kidney disease with stage 1 through stage 4 chronic kidney disease, or unspecified chronic kidney disease; F32.A Depression, unspecified; E11.65 Type 2 diabetes mellitus with hyperglycemia; J30.2 Other seasonal allergic rhinitis; N18.2 Chronic kidney disease, stage 2 (mild); F17.210 Nicotine dependence, cigarettes, uncomplicated; F15.10 Other stimulant abuse, uncomplicated; F41.9 Anxiety disorder, unspecified; F12.10 Cannabis abuse, uncomplicated; Y90.4 Blood alcohol level of 80-99 mg/100 ml; Z59.01 Sheltered homelessness; Z79.84 Long term (current) use of oral hypoglycemic drugs; Z79.85 Long-term (current) use of injectable non-insulin antidiabetic drugs; Z79.899 Other long term (current) drug therapy
CPT/HCPCS: 36415; 80048; 80076; 80307; 82077; 82962; 83690; 83735; 84100; 85025; 97802; 99284

== ENCOUNTER 2024-11-24 04:59 | Emergency (ER) | payer MEDICAID, SELFPAY ==
[2024-11-24 05:01] VITALS: BP 139/100; PULSE 90; RESP 18; TEMP 36.6; O2SAT 99; BMI 31.6
[2024-11-24 05:05] VITALS: BP 135/81
[2024-11-24 05:29] LABS: Bedside Glucose 447 mg/dL (74-106)
[2024-11-24 05:36] LABS: Absolute Lymphocyte Count 2.26 X10^3/uL (0.83-4.51); Absolute Neutrophil Count 3.1 X10^3/uL (2.0-7.7); Basophil# 0.04 X10^3/uL; Basophil% 0.6 % (0-1); Eosinophil# 0.31 X10^3/uL; Hematocrit 39.4 % (40-54); Hemoglobin 13.6 g/dL (13.0-16.5); Lymphocyte # 2.26 X10^3/ul (0.83-4.51); Lymphocyte % 36.3 % (19-41); Mean Corp Hgb Conc 34.5 g/dL (32-36); Mean Corpuscular Hgb 32.6 pg (27.0-32.0); Mean Corpuscular Volume 94.5 fL (80-94); Mean Platelet Vol. 10.9 fl (6.2-12.0); Monocyte# 0.53 X10^3/uL; Monocyte% 8.5 % (0-10); NRBC Flagged by Analyzer 0 % (0-5); Neutrophil # 3.06 X10^3/uL (2.7-7.7); Neutrophil % 49.3 % (47-70); Platelet Count 273 K/mm3 (150-450); RBC Distribution Width CV 13.2 % (11.6-14.6); RBC Distribution Width SD 45.7 fl (35.1-43.9); Red Blood Count 4.17 M/mm3 (4.6-6.2); White Blood Count 6.2 K/mm3 (4.4-11.0)
[2024-11-24 05:55] LABS: ALB/GLOB Ratio 1.5 RATIO (0.9-2.4); AST(SGOT) 27 U/L (<=37); Alanine Aminotransfer ALT/SGPT 16 U/L (<=46); Albumin, Serum 3.9 g/dL (3.5-5.0); Alkaline Phosphatase 86 U/L (40-129); Anion Gap 11 (5-15); BUN 21 mg/dL (4-19); BUN/Creat Ratio 15.9 RATIO (10-20); Calcium,Total 8.4 mg/dL (7.6-11.0); Carbon Dioxide 23.3 mmol/L (21.0-32.0); Chloride 97 mmol/L (98-108); EST Glomerular Filtration Rate 64 (>60); Estimated Creatinine Clearance 78.85 ml/min (50-250); Globulin 2.6 g/dL (2.2-4.2); Glucose 388 mg/dL (70-99); Potassium 4.4 mmol/L (3.3-5.1); Protein, Total 6.5 g/dL (5.9-8.4); Sodium Level 132 mmol/L (133-145); Total Bilirubin 0.31 mg/dL (0.00-1.30)
[2024-11-24] MEDS: 0.9% Normal Saline (1000mL) 1,000 ML 999 ML IV (06:22)
[2024-11-24] MEDS: Venlafaxine XR 150 MG Capsule PO (06:32)
[2024-11-24] MEDS: metFORMIN HCl 1,000 MG Tablet 1000 MG PO (06:32)
[2024-11-24] MEDS: Fluoxetine HCl 40 MG CAPSULE PO (06:32)
[2024-11-24] MEDS: Losartan Potassium 25 MG Tablet PO (06:32)
[2024-11-24 06:39] LABS: Bacteria 0 SEEN /hpf (None Seen); Mucous, Urine 0 SEEN /hpf (<or=2+); Red Blood Cells-Urine 0 SEEN /hpf (0-5); Squamous Epithelial Cells - UA 0 SEEN /hpf (0-5); White Blood Cells 0 SEEN /hpf (0-5)
[2024-11-24 06:42] LABS: Color, Urine Yellow (Yellow); Glucose, Dipstick 1000 mg/dl (Normal); Ketone-Dipstick 5 mg/dl (Negative); Leukocyte Esterase-Dipstick Negative /ul (Negative); Nitrite-Dipstick Negative (Negative); Occult Blood-Urine 25 /ul (Negative); Protein-Dipstick 30 mg/dl (Negative); Specific Gravity, Urine 1.015 (1.002-1.030); Urine Bilirubin Dipstick Negative (Negative); Urine Clarity Clear (Clear); Urine Urobilinogen Normal (Normal)
--- NOTE | 2024-11-24 07:11 | EX.ED.DYSGE1 ---
HPI History of Present Illness Chief Complaint: Hyperglycemia Informant: patient Narrative Narrative: 59-year-old male presenting to the emergency room with a chief complaint of elevated blood sugar. He states for the past couple weeks he has been out of his medications. He called his doctor on Sunday and got refills but was not able to get to the pharmacy before they closed. He states that he is feeling very foggy in his thinking and that his legs hurt. He has been urinating more frequently and more thirsty. He is not 100% sure of all of his medicines but he knows that he is on fluoxetine metformin Effexor Trulicity and trazodone. He denies any fevers. He notes constipation. [facility] Medical History Alcohol abuse Substance abuse Anxiety Hypertension CKD (chronic kidney disease) stage 2, GFR 60-89 ml/min Suicidal ideation Marijuana abuse Depression Diabetes Home Medications ?Medication ?Instructions ?Recorded ?Last Taken ?Type fluoxetine 20 mg capsule 40 mg PO DAILY depression 12/10/16 05/12/17 History trazodone 50 mg tablet 50 mg PO QHS PRN insomnia 30 days 09/16/21 Unknown Rx #14 tabs fluoxetine 40 mg capsule (Prozac) 40 mg PO DAILY 30 days #30 caps 05/07/22 Unknown Rx venlafaxine 150 mg 150 mg PO DAILY 05/07/22 Unknown History capsule,extended release 24 hr (Effexor XR) ibuprofen 600 mg tablet 600 mg PO Q8H PRN PRN pain #20 07/30/22 Unknown Rx TABLETS buspirone 10 mg tablet 10 mg PO BID 01/12/23 Unknown History losartan 25 mg tablet 25 mg PO DAILY 01/12/23 Unknown History metformin 1,000 mg tablet 1,000 mg PO DAILY diabeties 01/12/23 Unknown History dulaglutide 3 mg/0.5 mL mg subcut .weekly 08/03/24 Unknown History subcutaneous pen injector (Trulicity) montelukast 10 mg tablet 10 mg PO DAILY allergies 08/03/24 Unknown History Allergy/AdvReac Type Severity Reaction Status Date / Time Penicillins Allergy Rash Verified 11/24/24 05:03 Social History Smoking Status: Current every day smoker tobacco type: cigarettes alcohol intake: current substance use type: marijuana, crack/cocaine and amphetamines ROS ROS ED Constitutional Constitutional ED: Denies chills, fever(s) or weight loss Eyes Eyes: Denies change in vision or diplopia ENT ENT ED: Denies ear pain, rhinorrhea or sore throat Cardiovascular Cardiovascular: Denies chest pain, orthopnea, palpitations or racing heartbeat Respiratory/Chest Respiratory/Chest: Denies cough, dyspnea or orthopnea Gastrointestinal Gastrointestinal: Reports constipation; Denies abdominal pain, diarrhea, nausea or vomiting Genitourinary Genitourinary ED: Reports urinary frequency; Denies dysuria or hematuria Musculoskeletal Musculoskeletal: Denies arthralgias or myalgias Integumentary Denies abscess or rash Neurologic Neurologic: Reports other Details: Foggy thinking ; Denies headache(s) or weakness Psychiatric Psychiatric: Denies anxiety, depression, suicidal ideation or suicidal thoughts Endocrine Endocrinology: Reports polydipsia and polyuria; Denies polyphagia Allergic/Immunologic Allergic/Immunologic ED: Denies mouth swelling, tongue swelling or urticaria EXAM Physical Exam Narrative Exam Narrative: Patient laying down in the bed resting comfortably. He is watching his phone. Const Vital Signs: 11/24/24 05:01 11/24/24 05:03 11/24/24 05:05 Temperature 97.9 F Temperature Source Oral Pulse Rate 90 Respiratory Rate 18 Respiratory Effort Normal Non-Labored Respiratory Pattern Normal Blood Pressure 139/100 H 135/81 H Blood Pressure Mean 113 99 Pulse Ox 99 Oxygen Delivery Method Room Air Positive well nourished and well developed General Appearance ED: well developed and NAD HEENT Reports normocephalic, head/scalp atraumatic and moist mucous membranes Eyes PERRL and EOMs intact bilaterally Neck no lymphadenopathy, supple and no JVD Resp normal respiratory effort and clear to auscultation bilaterally Cardio regular rate, regular rhythm and no murmurs GI normal to inspection, nondistended, normoactive bowel sounds and non-tender Palpation: soft Back/Spine no CVA tenderness and normal ROM Extremity normal to inspection General Extremety ED: Negative for edema General Extremity: Negative for edema Neuro oriented x3, CN's II-XII intact bilaterally and no sensory deficits noted Sensorium / Orientation: alert Motor Exam: strength 5/5 throughout Psych mental status grossly normal Mood & Affect: Negative for depressed or tearful Skin no rashes or lesions noted and no wounds MDM MDM MDM Narrative Medical decision making narrative: Differential diagnosis includes but not limited to hyperglycemia hyperosmolar nonketotic syndrome electrolyte abnormalities UTI acute kidney injury medication withdrawal Basic blood work was obtained shows a white count of 6.2 hemoglobin of 13.6 platelet count of 273. Sodium 132 but a glucose of 388. Creatinine 1.30 BUN of 21 potassium 4.4 normal LFTs. Urinalysis shows no overt infection. Patient received a liter of IV fluids. We also gave him a dose of Effexor metformin losartan and fluoxetine. I believe this should help get him until he can get his prescription picked up at the pharmacy tomorrow as today is a holiday and his pharmacy is closed. Patient is comfortable with this plan History & Record Review Discussion w/independent historian: Patient Additional record(s) reviewed:: Prior inpatient record, Prior ED visit and Prior labs Lab Data Attestation: I reviewed the patient's lab results. Labs: Laboratory Results - last 24 hr 11/24/24 11/24/24 11/24/24 05:05 05:30 06:34 WBC 6.2 RBC 4.17 L Hgb 13.6 Hct 39.4 L MCV 94.5 H MCH 32.6 H MCHC 34.5 RDW Std Deviation 45.7 H RDW Coeff of [place] 13.2 Plt Count 273 MPV 10.9 Immature Gran % (Auto) 0.300 Neut % (Auto) 49.3 Lymph % (Auto) 36.3 Patrick % (Auto) 8.5 Eos % (Auto) 5.0 Baso % (Auto) 0.6 Absolute Neuts (auto) 3.1 Absolute Lymphs (auto) 2.26 Nucleated RBC % 0 Sodium 132 L Potassium 4.4 Chloride 97 L Carbon Dioxide 23.3 Anion Gap 11 BUN 21 H Creatinine 1.30 H Estim Creat Clear Calc 78.85 Est GFR (MDRD) Non-Af 64 BUN/Creatinine Ratio 15.9 Glucose 388 H Calcium 8.4 Total Bilirubin 0.31 AST 27 ALT 16 Alkaline Phosphatase 86 Total Protein 6.5 Albumin 3.9 Globulin 2.6 Albumin/Globulin Ratio 1.5 Urine Color Yellow Urine Clarity Clear Urine pH 6.0 Ur Specific Chambers 1.015 Urine Protein 30 H Urine Glucose (UA) 1000 H Urine Ketones 5 H Urine Occult Blood 25 H Urine Nitrite Negative Urine Bilirubin Negative Urine Urobilinogen Normal Ur Leukocyte Esterase Negative Urine RBC 0 SEEN Urine WBC 0 SEEN Ur Squamous Epith Cells 0 SEEN Urine Bacteria 0 SEEN Urine Mucus 0 SEEN POC Glucose 447 H Discharge Plan Triage Chief Complaint: Hyperglycemia ED Provider: Armaan Gregorio Dx/Rx/DC Orders Clinical Impression: Hyperglycemia due to diabetes mellitus Prescriptions: No Action fluoxetine 20 MG capsule 40 mg PO DAILY trazodone 50 mg tablet 50 mg PO QHS PRN (Reason: insomnia) 30 Days Qty: 14 0RF venlafaxine [Effexor XR] 150 mg Capsule,Extended Release 24hr 150 mg PO DAILY fluoxetine [Prozac] 40 mg capsule 40 mg PO DAILY 30 Days Qty: 30 0RF ibuprofen 600 mg tablet 600 mg PO Q8H PRN PRN (Reason: pain) Qty: 20 0RF metformin 1,000 mg tablet 1,000 mg PO DAILY Patient Comments: TAKE 1 TABLET BY MOUTH TWICE DAILY losartan 25 mg tablet 25 mg PO DAILY Patient Comments: TAKE 1 TABLET BY MOUTH EVERY DAY buspirone 10 mg tablet 10 mg PO BID Patient Comments: take one tablet by mouth twice a day for anxiety Trulicity 3 mg/0.5 mL pen injector SUBCUT .weekly Patient Comments: [NO ORIGINAL SIG] montelukast 10 mg tablet 10 mg PO DAILY Primary Care Provider: Sloan Merino Referrals: Sloan Merino, [employer]IC-C [Primary Care Provider] - As soon as possible Activity Restrictions/Additional Instructions: Please meat pickler your prescriptions tomorrow when your pharmacy opens. We have given you a dose of your medications here in the emergency department. Unfortunately we are not able to give you a dose of everyone to your medications but this should help with your blood sugar today. Please continue to stay hydrated. Print Language: Jamaican Disposition Disposition: Home, Self Care
[2024-11-24 07:26] VITALS: BP 131/74; PULSE 88; RESP 18; TEMP 36.9; O2SAT 99
== END 2024-11-24 07:30 | disposition home or self-care (01) ==
PROVIDERS: Emergency Provider Emergency Medicine; PCP Nurse Practitioner Family; Visit Provider Emergency Medicine
DX: E11.65 Type 2 diabetes mellitus with hyperglycemia (principal); E11.22 Type 2 diabetes mellitus with diabetic chronic kidney disease; N18.2 Chronic kidney disease, stage 2 (mild); I12.9 Hypertensive chronic kidney disease with stage 1 through stage 4 chronic kidney disease, or unspecified chronic kidney disease; F12.10 Cannabis abuse, uncomplicated; F17.210 Nicotine dependence, cigarettes, uncomplicated; Z79.84 Long term (current) use of oral hypoglycemic drugs; Z79.85 Long-term (current) use of injectable non-insulin antidiabetic drugs; Z79.899 Other long term (current) drug therapy
CPT/HCPCS: 80053; 81001; 82962; 85025; 96360; 99283; A4216